=== PATIENT | male | born 1960 | race Caucasian/White ===

== ENCOUNTER 2016-05-19 14:57 | Observation (INO) | payer MEDICARE ==
[2016-05-19] MEDS ORDERED: Sodium Chloride 0.9% 1000 ML 1,000 ML IV STA (15:46)
[2016-05-19] MEDS ORDERED: Sodium Chloride 0.9% 1000 ML 1,000 ML ONE ×2 (15:48→20:10)
--- NOTE | 2016-05-19 15:51 | ERPHSYRPT ---
- History of Present Illness Time Seen by Provider: 05/19/16 15:42 Source: patient Exam Limitations: no limitations Patient Subjective Stated Complaint: HAD LABS DONE TODAY AND THEY CALLED PT AND TOLD HIM HIS BLOOD SUGAR WAS 861 AND HIS SODIUM WAS LOW HE NEEDED TO GO TO THE ER. Triage Nursing Assessment: SKIN WARM, DRY, DUSKY. RESPIRATIONS EVEN AND NON LABORED. Physician History: This is a 55-year-old white male with history of diabetes, liver disease, renal failure, asthma, COPD, sleep apnea, arrhythmia, congestive heart failure, He arrives with complaints that she was told by his family physician to come to the emergency room apparently had a high glucose and a low sodium. Patient states that he has been having vomiting recently he apparently was on a new medication placed by his family doctor but quit taking it because it made him a nauseous. He had labs drawn by his family physician's today and was told to present to the emergency room. Past medical history includes diabetes, liver disease, renal failure, asthma, COPD, sleep apnea, arrhythmia, congestive heart failure, coronary artery disease , high blood pressure, myocardial infarction, autoimmune hepatitis, hernia, arthritis, fractures, anxiety, depression. Past surgical history includes CABG, cardiac catheter, pacer, hernia, heart ablation. Timing/Duration: today Severity: mild Modifying Factors: Improves With: other (told by his family physician he had elevated glucose of low sodium) Associated Symptoms: nausea, vomiting, abdominal pain, No shortness of breath, No heartburn, No diaphoresis, No cough, No chills, No chest pain, No fever, No loss of appetite, No malaise, No rash, No syncope, No seizure, No weakness Allergies/Adverse Reactions: cephalexin [Cephalexin] Allergy (Mild, Verified 12/11/15 15:06) Home Medications: Albuterol Sulfate [Proventil Hfa] 6.7 gm IH .UNKNOWN PRN 05/24/14 [History] Amlodipine Besylate 10 mg [Norvasc 10 MG] 10 mg PO DAILY 05/24/14 [History] Budesonide/Formoterol Fumarate [Symbicort 160-4.5 Mcg Inhaler] 2 puff IH BID [History] Cholecalciferol (Vitamin D3) [Vitamin D3] 50,000 unit PO UD 05/24/14 [History] Dabigatran Etexilate Mesylate [Pradaxa] 75 mg PO BID 05/24/14 [History] Epoetin John 35238 Units/ml [Procrit 82190 UNITS/ML] 0 units SQ WEEKLY [History] Hydrocodone/Acetaminophen [Vicodin Es 7.5-300 mg Tablet] 1 each PO Q6HPRN [History] Insulin Detemir [Levemir] 60 unit SQ BID 05/24/14 [History] Labetalol HCl [Trandate] 200 mg PO BID 05/24/14 [History] Levothyroxine Sodium 88 Mcg [Synthroid 88 Mcg] 88 mcg PO DAILY 05/24/14 [ History] Mycophenolate Mofetil [Cellcept] 500 mg PO BID 05/24/14 [History] Nitroglycerin 0.4 mg Tablet [Nitrostat 0.4 MG Tablet] 0.4 mg SL Q5MIN PRN MR X 3 05/24/14 [History] Ondansetron [Zofran Odt] 4 mg PO DAILY PRN 05/24/14 [History] Sildenafil Citrate [Viagra] 50 mg PO DAILY PRN 05/24/14 [History] Ursodiol 300 mg [Actigall 300MG] 900 mg PO BID 05/24/14 [History] Hydralazine HCl 50 mg PO TID 04/17/15 [History] Losartan Potassium [Cozaar] 25 mg PO DAILY 04/17/15 [History] Magnesium Oxide [Magnesium] 800 mg PO DAILY 04/17/15 [History] Metolazone 5 mg PO UD 04/17/15 [History] Tamsulosin HCl 0.4 mg [Flomax 0.4 MG] 0.4 mg PO DAILY 04/17/15 [History] Torsemide 20 mg PO BID 04/17/15 [History] Calcitriol 0.5 mcg PO UD 12/11/15 [History] Ranolazine 500 MG [Ranexa 500 MG] 500 mg PO BID 12/11/15 [History] Insulin Aspart [Novolog Flexpen] 80 unit SQ BID 05/19/16 [History] Hx Tetanus, Diphtheria Vaccination/Date Given: Yes Hx Influenza Vaccination/Date Given: Yes (2015) Hx Pneumococcal Vaccination/Date Given: Yes (2014) Immunizations Up to Date: Yes - Review of Systems Constitutional: No Fever, No Chills, No Fatigue, No Lethargy, No Malaise, No Night Sweats, No Weakness, No Weight Loss Eyes: No Discharge, No Eye Pain, No Eye Redness, No Photophobia, No Tearing, No Vision Changes, No Double Vision, No Foreign Body Sensation Ears, Nose, & Throat: No Ear Pain, No Ear Discharge, No Hearing Changes, No Tinnitus, No Nose Pain, No Nose Congestion, No Nose Discharge, No Sinus Drainage , No Epistaxis, No Mouth Pain, No Mouth Swelling, No Loose Teeth, No Throat Pain , No Throat Swelling, No Hoarse, No Painful Swallowing, No Snoring, No Stridor Respiratory: No Cough, No Dyspnea Cardiac: No Chest Pain, No Edema, No Syncope Abdominal/Gastrointestinal: Abdominal Pain (pain of bilateral lateral abdomen off-and-on for several weeks), Nausea, Vomiting, No Diarrhea, No Constipation, No Hematemesis, No Hematochezia, No Melena, No Dysphagia, No Appetite Changes Genitourinary Symptoms: No Dysuria Musculoskeletal: No Back Pain, No Neck Pain Skin: No Rash Neurological: No Dizziness, No Focal Weakness, No Sensory Changes Psychological: No Symptoms Endocrine: No Symptoms All Other Systems: Reviewed and Negative - Past Medical History Pertinent Past Medical History: Yes Neurological History: No Pertinent History ENT History: No Pertinent History Cardiac History: Arrhythmia, Congestive Heart Failure, Coronary Artery Disease, Hypertension, Myocardial Infarction ([place]), Other Respiratory History: Asthma, COPD, Sleep Apnea Endocrine Medical History: Diabetes Type I, Liver Disease Musculoskeletal History: Arthritis, Fractures, Other GI Medical History: Hepatitis, Hernia History: Renal Disease Psycho-Social History: Anxiety Male Reproductive Disorders: No Pertinent History - Past Surgical History Past Surgical History: Yes Neuro Surgical History: No Pertinent History Cardiac: CABG, Cardiac Catheterization, Pacemaker Respiratory: No Pertinent History Gastrointestinal: Hernia Repair Genitourinary: No Pertinent History Musculoskeletal: No Pertinent History Male Surgical History: No Pertinent History Other Surgical History: open heart for afib - Social History Smoking Status: Current every day smoker How long have you smoked: 35 Exposure to second hand smoke: No Drug Use: none Patient Lives Alone: No - Nursing Vital Signs Nursing Vital Signs: Initial Vital Signs Temperature 98.1 F Temperature Source Oral Pulse Rate 72 Respiratory Rate 18 Blood Pressure [] 137/74 Pain Intensity 0 - Physical Exam General Appearance: no apparent distress, alert Eye Exam: PERRL/EOMI, eyes nml inspection Ears, Nose, Throat Exam: normal ENT inspection, TMs normal, pharynx normal, moist mucous membranes Neck Exam: normal inspection, non-tender, supple, full range of motion Respiratory Exam: normal breath sounds, lungs clear, No respiratory distress Cardiovascular Exam: regular rate/rhythm, normal heart sounds, normal peripheral pulses Gastrointestinal/Abdomen Exam: soft, normal bowel sounds, No tenderness, No mass Back Exam: normal inspection, normal range of motion, No CVA tenderness, No vertebral tenderness Extremity Exam: normal inspection, normal range of motion, pelvis stable Neurologic Exam: alert, oriented x 3, cooperative, normal mood/affect, nml cerebellar function, nml station & gait, sensation nml, No motor deficits Lymphatic Exam: No adenopathy SpO2 Interpretation: normal (97%) SpO2: 97 Oxygen Delivery: Room Air - Course Nursing assessment & vital signs reviewed: Yes EKG Interpreted by Me: RATE (65 bpm), Other (paced rhythm, 65 bpm,large amount of artifact from pacerno acute changes noted) - Radiology Exams Chest X-ray Interpretation: Discussed w/ radiologist (chest x-ray more blunting of the right costophrenic angle cannot tell whether due to the increased pleural scarring or minimal effusion on the right, remainder of the right upper lung field and left lung appears clear no new airspace infiltrate seen. 3. Evidence of prior CABG and left-sided cardiac pacemaker no heart failure is seen ) Ordered Tests: Active Orders 24 hr Category Date Time Status Accucheck STAT Care 05/19/16 15:46 Active EKG-ER Only STAT Care 05/19/16 16:03 Active IV Insertion STAT Care 05/19/16 15:46 Active IV Insertion-2nd Peripheral STAT Care 05/19/16 15:46 Active CHEST 1 VIEW (PORTABLE) Stat Exams 05/19/16 15:51 Completed CBC W DIFF Stat Lab 05/19/16 15:54 Completed CMP Stat Lab 05/19/16 15:54 Completed Glucose,Critical Care Stat Lab 05/19/16 15:58 Completed Lactic Acid Urgent Lab 05/19/16 15:46 Completed Manual Differential NC Stat Lab 05/19/16 15:54 Completed VENOUS BLOOD GAS Urgent Lab 05/19/16 15:46 Completed Medication Summary Generic Name Dose Route Start Last Admin Trade Name Mayte PRN Reason Stop Dose Admin Insulin Human Regular 100 101 mls @ 10.1 mls/hr 05/19/16 17:15 units/ Sodium Chloride IV 06/18/16 17:14 .Q10H AGUSTINA 10 UNITS/HR Discontinued Medications Generic Name Dose Route Start Last Admin Trade Name Mayte PRN Reason Stop Dose Admin Sodium Chloride 1,000 mls @ 999 mls/hr 05/19/16 15:46 05/19/16 15:51 Sodium Chloride 0.9% 1000 Ml IV 05/19/16 16:46 999 mls/hr .Q1H1M STA Administration Sodium Chloride Confirm 05/19/16 15:48 Sodium Chloride 0.9% 1000 Ml Administered 05/19/16 15:49 Dose 1,000 mls @ ud .ROUTE .STK-MED ONE Lab/Rad Data: Laboratory Result Diagrams 05/19/16 15:54 05/19/16 15:54 Laboratory Results 05/19/16 05/19/16 05/19/16 Range/Units 15:58 15:54 15:54 WBC 9.1 (4.0-10.5) K/mm3 RBC 4.06 L (4.1-5.6) M/mm3 Hgb 10.9 L (12.5-18.0) gm/dl Hct 31.1 L (42-50) % MCV 76.6 L (78-100) fl MCH 26.8 (26-32) pg MCHC 35.0 (32-36) g/dl RDW 15.5 H (11.5-14.0) % Plt Count 204 (150-450) K/mm3 MPV 11.0 H (6-9.5) fl Segmented Neutrophils 85 H (36.-66.) % Lymphocytes (Manual) 10 L (24-44) % Monocytes (Manual) 5 (0.0-12.0) % Differential Comment NORMAL Platelet Estimate NORMAL (NORMAL) VBG pH (7.32-7.42) VBG pCO2 at Pat Temp (42-55) mm/Hg VBG pO2 at Pat Temp (25-40) mm/Hg VBG HCO3 (22-28) meq/L VBG O2 Sat (Tae) (95-100) VBG Base Excess (-2.0-2.0) VBG Hemoglobin VBG Carboxyhemoglobin (0.0-6.9) % T HGB POC Potassium (3.5-5.1) Sodium 123 L (136-145) mEq/L Potassium 3.7 (3.5-5.1) mEq/L Chloride 86 L (98-107) mEq/L Carbon Dioxide 23.5 (21-32) mEq/L Anion Gap 17.4 H (5-15) MEQ/L BUN 62 H (9-20) mg/dL Creatinine 3.61 H (0.55-1.30) mg/dl Estimated GFR 19 ML/MIN Glucose > 750 H* 855 H* (70-110) MG/DL Lactic Acid (0.4-2.0) Calcium 8.5 (8.5-10.1) mg/dL Total Bilirubin 0.4 (0.2-1.0) mg/dL AST 13 L (15-37) U/L ALT 21 (12-78) U/L Alkaline Phosphatase 172 H (46-116) U/L Serum Total Protein 7.3 (6.4-8.2) gm/dL Albumin 3.2 L (3.4-5.0) g/dL 05/19/16 Range/Units 15:46 WBC (4.0-10.5) K/mm3 RBC (4.1-5.6) M/mm3 Hgb (12.5-18.0) gm/dl Hct (42-50) % MCV (78-100) fl MCH (26-32) pg MCHC (32-36) g/dl RDW (11.5-14.0) % Plt Count (150-450) K/mm3 MPV (6-9.5) fl Segmented Neutrophils (36.-66.) % Lymphocytes (Manual) (24-44) % Monocytes (Manual) (0.0-12.0) % Differential Comment Platelet Estimate (NORMAL) VBG pH 7.35 (7.32-7.42) VBG pCO2 at Pat Temp 47 (42-55) mm/Hg VBG pO2 at Pat Temp 49 H (25-40) mm/Hg VBG HCO3 25.9 (22-28) meq/L VBG O2 Sat (Tae) 87.4 L (95-100) VBG Base Excess -0.1 (-2.0-2.0) VBG Hemoglobin 10.9 VBG Carboxyhemoglobin 6.3 (0.0-6.9) % T HGB POC Potassium 3.9 (3.5-5.1) Sodium (136-145) mEq/L Potassium (3.5-5.1) mEq/L Chloride (98-107) mEq/L Carbon Dioxide (21-32) mEq/L Anion Gap (5-15) MEQ/L BUN (9-20) mg/dL Creatinine (0.55-1.30) mg/dl Estimated GFR ML/MIN Glucose (70-110) MG/DL Lactic Acid 2.3 H (0.4-2.0) Calcium (8.5-10.1) mg/dL Total Bilirubin (0.2-1.0) mg/dL AST (15-37) U/L ALT (12-78) U/L Alkaline Phosphatase (46-116) U/L Serum Total Protein (6.4-8.2) gm/dL Albumin (3.4-5.0) g/dL - Progress Progress: improved Progress Note: 05/19/16 17:22 This is a 55-year-old white male who arrives with complaint of increased glucose and decreased potassium in his family physician's office morning. Patient states he has been on a medication for his diabetes but he quit taking it because it was causing him to have stomach problems. Patient states he has had a chronic ongoing pain in his stomach off and on for about 2 weeks and he's had occasional vomiting no diarrhea no fevers no chest pain no shortness of breath. Patient does have a history of diabetes, liver failure, renal failure, asthma, COPD, sleep apnea, arrhythmia, congestive heart failure, high blood pressure, coronary artery disease, and myocardial infarction as well as autoimmune hepatitis. Patient's labs show a glucose of 855 BUN is 62 creatinine 3.61 sodium 123 potassium 3.7 chloride 86. Carbon dioxide is 23 patient appears to be fairly stable chest x-ray shows pleural and parenchymal scarring in the right lung base which appears to be increased and not clear whether this is secondary to a minimal effusion the remainder of the right upper lung field and left lung appear to be clear patient's EKG paced rhythm 65 bpm no acute changes noted. Case is discussed with Dr. Nogueira patient was initially started on normal saline at [address] mil[address] place patient on normal saline with 40 mEq of potassium chloride at 200 mL per hour,. Patient has been started on an insulin drip. Will place patient in the ICU. And continue insulin drip and IV fluids - Departure Time of Disposition: 17:26 Departure Disposition: Observation Clinical Impression: Hyperglycemia Condition: Fair Critical Care Time: No
[2016-05-19 15:56] LABS: Lactic Acid 2.3 (0.4-2.0); VBG BASE EXCESS -0.1 (-2.0-2.0); VBG CARBOXYHEMOGLOBIN 6.3 % T HGB (0.0-6.9); VBG HCO3- 25.9 meq/L (22-28); VBG HEMOGLOBIN 10.9; VBG O2 SATURATION 87.4 (95-100); VBG POTASSIUM 3.9 (3.5-5.1); VBG pH 7.35 (7.32-7.42)
[2016-05-19 15:59] LABS: Mean Cell Volume 76.6 fl (78-100); Mean Corpuscular Hemoglobin 26.8 pg (26-32); Platelet Count 204 K/mm3 (150-450); Red Blood Count 4.06 M/mm3 (4.1-5.6); Red Cell Distribution Width 15.5 % (11.5-14.0); White Blood Count 9.1 K/mm3 (4.0-10.5)
[2016-05-19 16:40] LABS: ALBUMIN 3.2 g/dL (3.4-5.0); ANION GAP 17.4 MEQ/L (5-15); BILIRUBIN,TOTAL 0.4 mg/dL (0.2-1.0); Carbon Dioxide 23.5 mEq/L (21-32); Potassium 3.7 mEq/L (3.5-5.1); Total Protein 7.3 gm/dL (6.4-8.2)
[2016-05-19 16:47] LABS: Total Cells Counted 100
[2016-05-19 16:48] LABS: Platelet Estimate NORMAL (NORMAL)
--- NOTE | 2016-05-19 16:56 | XRAY ---
Exam: AP portable chest film from 1600 hours on 05/19/2016. Comparison: Two-view chest from 12/11/2015. Indication: Hyperglycemia Findings: The transverse heart size appears within normal limits for this AP portable technique. There is evidence of prior sternotomy, apparently due to CABG. A left atrial appendage clip is seen. No central pulmonary vascular congestion is seen. A left-sided cardiac pacemaker with dual leads is again seen. I note mild to moderate elevation of the lateral aspect of the right hemidiaphragm with chronic pleural-parenchymal opacity within the lateral right lung base believed to represent scarring. There is some blunting of the right costophrenic angle which probably reflects pleural scarring, although minimal superimposed effusion is not excluded with certainty. The right upper lung field and left lung field remain clear. Old healed right-sided rib fractures are again seen. I believe there is also an old healed left sixth rib fracture deformity posterior laterally. Impression: 1. There is pleural-parenchymal scarring at the lateral right lung base with some focal elevation of the lateral aspect of the right hemidiaphragm. This appears similar to 12/11/2015, although there may be slightly more blunting of the right costophrenic angle. I cannot tell whether this is due to increased pleural scarring or a minimal effusion on the right. 2. The remainder of the right upper lung field and left lung field appears clear. No new air space infiltrates are seen. 3. There is evidence of prior CABG and left-sided cardiac pacemaker. No heart failure is seen.
[2016-05-19] MEDS ORDERED: NOVOLIN R INSULIN (FOR DRIPS)** 100 UNITS in Sodium Chloride 0.9% 100 ML IVPB 100 ML IV SCH (17:15)
[2016-05-19] MEDS ORDERED: NovoLIN R ONE (17:22)
[2016-05-19] MEDS ORDERED: Sodium Chloride 0.9% 100 ML IVPB 100 ML IV ONE (17:22)
[2016-05-19] MEDS ORDERED: NOVOLIN R INSULIN (FOR DRIPS)** 100 UNITS in Sodium Chloride 0.9% 100 ML IVPB 100 ML IV PRN (20:56)
[2016-05-19] MEDS: SODIUM CHLORIDE 0.9% W/ 40 mEq KCL 1000ML 1,000 ML IV SCH (21:22)
[2016-05-19] MEDS ORDERED: PROVENTIL 2.5 MG/3 ML NEB IH PRN (21:25)
[2016-05-20 00:32] LABS: ANION GAP 12.3 MEQ/L (5-15); Carbon Dioxide 26.6 mEq/L (21-32); Potassium 3.5 mEq/L (3.5-5.1)
[2016-05-20 00:40] VITALS: O2SAT 96
[2016-05-20] MEDS ORDERED: NORCO 5/325 MG PO PRN (01:11)
[2016-05-20] MEDS ORDERED: Lantus Insulin SQ SCH ×3 (01:30→10:45)
[2016-05-20] MEDS: SODIUM CHLORIDE 0.9% W/ 40 mEq KCL 1000ML 1,000 ML IV SCH ×4 (02:39→08:10)
[2016-05-20 03:59] VITALS: PULSE 92
[2016-05-20 06:09] LABS: ANION GAP 13.6 MEQ/L (5-15); Carbon Dioxide 25.8 mEq/L (21-32); Potassium 3.4 mEq/L (3.5-5.1)
[2016-05-20 08:40] VITALS: BP 150/76
[2016-05-20] MEDS ORDERED: ZOFRAN ODT 4 MG PO PRN (09:13)
[2016-05-20] MEDS ORDERED: Nitrostat 0.4 MG Tablet SL SCH (09:15)
[2016-05-20] MEDS ORDERED: NON-FORMULARY ITEM (Metolazone [Metolazone] 5 MG) PO SCH (09:15)
[2016-05-20] MEDS ORDERED: NON-FORMULARY ITEM (Calcitriol [Calcitriol] 0.5 MCG) PO SCH (09:15)
[2016-05-20] MEDS ORDERED: VITAMIN D PO SCH (09:15)
[2016-05-20] MEDS ORDERED: NON-FORMULARY ITEM (Mycophenolate Mofetil [Cellcept] 500 MG) PO SCH (10:00)
[2016-05-20] MEDS ORDERED: Lasix 40 MG PO SCH (10:00)
[2016-05-20] MEDS ORDERED: Actigall 300MG PO SCH ×3 (10:00→22:00)
[2016-05-20] MEDS ORDERED: SYNTHROID 88 MCG PO SCH (10:00)
[2016-05-20] MEDS ORDERED: hydroDIURIL 25 MG PO SCH (10:00)
[2016-05-20] MEDS ORDERED: Apresoline 25 MG TABLET PO SCH (10:00)
[2016-05-20] MEDS ORDERED: LOSARTAN POTASSIUM PO SCH (10:00)
[2016-05-20] MEDS ORDERED: Cozaar 50 MG PO SCH (10:00)
[2016-05-20] MEDS ORDERED: MAG-OX 400 PO SCH (10:00)
[2016-05-20] MEDS ORDERED: Trandate 100 MG PO SCH (10:00)
[2016-05-20] MEDS ORDERED: LABETALOL HCL 300 MG PO SCH (10:00)
[2016-05-20] MEDS ORDERED: DABIGATRAN ETEXILATE MESYLATE 75 MG PO SCH (10:00)
[2016-05-20] MEDS ORDERED: Flomax 0.4 MG PO SCH (10:00)
[2016-05-20] MEDS ORDERED: Ranexa 500 MG PO SCH (10:00)
[2016-05-20] MEDS ORDERED: Zaroxolyn 2.5 MG PO SCH (10:00)
[2016-05-20] MEDS ORDERED: NORVASC 5 MG PO SCH (10:00)
[2016-05-20] MEDS ORDERED: NON-FORMULARY ITEM (Hydralazine Hcl [Hydralazine Hcl] 50 MG) PO SCH (10:00)
[2016-05-20] MEDS ORDERED: PRADAXA 75 MG PO SCH (10:00)
[2016-05-20] MEDS ORDERED: NON-FORMULARY ITEM (Amlodipine Besylate 10 Mg [Norvasc 10 Mg] 10 MG) PO SCH (10:00)
[2016-05-20] MEDS ORDERED: NON-FORMULARY ITEM (Budesonide/Formoterol Fumarate [Symbicort 160-4.5 Mcg Inhaler] 2 PUFF) IH SCH (10:00)
[2016-05-20] MEDS ORDERED: NovoLOG Insulin SQ SCH (11:30)
[2016-05-20] MEDS ORDERED: INSULIN ASPART 40 UNIT SQ SCH (11:30)
--- NOTE | 2016-05-20 12:50 | PCM.SSS ---
History of Present Illness - Chief Complaint Chief Complaint: hyperglycemia History of Present Illness: This is a 55-year-old white male with history of diabetes, liver disease, renal failure, asthma, COPD, sleep apnea, arrhythmia, congestive heart failure, He arrives with complaints that she was told by his family physician to come to the emergency room apparently had a high glucose and a low sodium. Patient states that he has been having vomiting recently he apparently was on a new medication placed by his family doctor but quit taking it because it made him a nauseous. He had labs drawn by his family physician's today and was told to present to the emergency room. Past medical history includes diabetes, liver disease, renal failure, asthma, COPD, sleep apnea, arrhythmia, congestive heart failure, coronary artery disease , high blood pressure, myocardial infarction, autoimmune hepatitis, hernia, arthritis, fractures, anxiety, depression. Past surgical history includes CABG, cardiac catheter, pacer, hernia, heart ablation - Review of Systems Constitutional: No Fever, No Chills Eyes: No Symptoms Ears, Nose, & Throat: No Symptoms Respiratory: No Cough, No Short Of Breath Cardiac: No Chest Pain, No Edema, No Syncope Abdominal/Gastrointestinal: No Abdominal Pain, No Nausea, No Vomiting, No Diarrhea Genitourinary Symptoms: No Dysuria Musculoskeletal: No Back Pain, No Neck Pain Skin: No Rash Neurological: No Dizziness, No Focal Weakness, No Sensory Changes Psychological: No Symptoms Endocrine: No Symptoms Hematologic/Lymphatic: No Symptoms Immunological/Allergic: No Symptoms Medications & Allergies Home Medications: Home Medication List Albuterol Sulfate [Proventil Hfa] 6.7 gm IH .UNKNOWN PRN 05/24/14 [History Confirmed 05/19/16] Amlodipine Besylate 10 mg [Norvasc 10 MG] 10 mg PO DAILY 05/24/14 [History Confirmed 05/19/16] Budesonide/Formoterol Fumarate [Symbicort 160-4.5 Mcg Inhaler] 2 puff IH BID [History Confirmed 05/19/16] Cholecalciferol (Vitamin D3) [Vitamin D3] 50,000 unit PO UD 05/24/14 [History Confirmed 05/19/16] Dabigatran Etexilate Mesylate [Pradaxa] 75 mg PO BID 05/24/14 [History Confirmed 05/19/16] Insulin Detemir [Levemir] 80 unit SQ BID 05/24/14 [History Confirmed 05/19/16] Labetalol HCl [Trandate] 200 mg PO BID 05/24/14 [History Confirmed 05/20/16] Levothyroxine Sodium 88 Mcg [Synthroid 88 Mcg] 88 mcg PO DAILY 05/24/14 [ History Confirmed 05/19/16] Mycophenolate Mofetil [Cellcept] 500 mg PO BID 05/24/14 [History Confirmed 05/19] Nitroglycerin 0.4 mg Tablet [Nitrostat 0.4 MG Tablet] 0.4 mg SL Q5MIN PRN MR X 3 05/24/14 [History Confirmed 05/19/16] Ondansetron [Zofran Odt] 4 mg PO DAILY PRN 05/24/14 [History Confirmed 05/19/16] Sildenafil Citrate [Viagra] 50 mg PO DAILY PRN 05/24/14 [History Confirmed 05/19] Ursodiol 300 mg [Actigall 300MG] 900 mg PO BID 05/24/14 [History Confirmed 05/19/16] Hydralazine HCl 50 mg PO TID 04/17/15 [History Confirmed 05/19/16] Magnesium Oxide [Magnesium] 500 mg PO DAILY 04/17/15 [History Confirmed 05/19/16 ] Metolazone 5 mg PO UD 04/17/15 [History Confirmed 05/19/16] Tamsulosin HCl 0.4 mg [Flomax 0.4 MG] 0.4 mg PO DAILY 04/17/15 [History Confirmed 05/19/16] Calcitriol 0.5 mcg PO UD 12/11/15 [History Confirmed 05/19/16] Ranolazine 500 MG [Ranexa 500 MG] 500 mg PO BID 12/11/15 [History Confirmed 05/20/16] Atorvastatin Calcium [Lipitor 20MG Tablet] 20 mg PO QHS 05/19/16 [History Confirmed 05/19/16] Hydrocodone Bit/Acetaminophen [Hydrocodon-Acetaminophen 5-325] 1 each PO Q6HPRN PRN 05/19/16 [History Confirmed 05/19/16] Insulin Aspart [Novolog Flexpen] 40 unit SQ TIDAC 05/19/16 [History Confirmed ] Losartan Potassium [Hyzaar 100-25] 1 tab PO DAILY 05/19/16 [History Confirmed ] Albuterol 2.5 mg/3 ml Neb [Proventil 2.5 mg/3 ml Neb] 2.5 mg IH Q4H PRN PRN #0 neb 05/20/16 [Rx] Hydrochlorothiazide 25 mg [hydroDIURIL 25 MG] 25 mg PO DAILY #0 tablet [Rx] Torsemide 20 mg PO BID 05/20/16 [History Confirmed 05/20/16] Ursodiol 300 mg [Actigall 300MG] 600 mg PO QPM #0 cap 05/20/16 [Rx] Allergies/Adverse Reactions: Allergies Allergy/AdvReac Type Severity Reaction Status Date / Time cephalexin [Cephalexin] Allergy Mild Verified 12/11/15 15:06 - Past Medical History Past Medical History: Yes Neurological History: No Pertinent History ENT History: No Pertinent History Cardiac History: Arrhythmia, Congestive Heart Failure, Coronary Artery Disease, Hypertension, Myocardial Infarction ([place]), Other Respiratory History: Asthma, COPD, Sleep Apnea Endocrine Medical History: Diabetes Type I, Liver Disease Musculoskelatal History: Arthritis, Fractures, Other GI Medical History: Hepatitis, Hernia History: Renal Disease Pyscho-Social History: Anxiety Male Reproductive Disorders: No Pertinent History - Past Surgical History Past Surgical History: Yes Neuro Surgical History: No Pertinent History Cardiac History: CABG, Cardiac Catheterization, Pacemaker Respiratory Surgery: No Pertinent History GI Surgical History: Hernia Repair Genitourinary Surgical Hx: No Pertinent History Musculskeletal Surgical Hx: No Pertinent History Male Surgical History: No Pertinent History Other Surgical History: open heart for afib - Social History Smoking Status: Current every day smoker How long have you smoked: 35 Exposure to second hand smoke: No Alcohol: None Drug Use: none - Physical Exam Vital Signs: Vital Signs - 24 hr Temp Pulse Resp BP Pulse Ox 05/20/16 08:16 92 H 16 96 05/20/16 08:00 98.4 F 73 11 L 150/76 99 05/20/16 03:58 97.8 F 92 H 15 146/79 96 05/20/16 03:57 108 H 05/20/16 00:01 108 H 05/20/16 00:00 108 H 22 138/47 96 05/19/16 21:21 100 H 20 98 05/19/16 20:05 101 H 16 150/92 96 05/19/16 18:01 64 18 147/63 98 05/19/16 17:30 67 18 138/60 98 05/19/16 17:26 97 05/19/16 15:48 67 16 141/70 97 05/19/16 14:58 98.1 F 72 18 137/74 97 Oxygen-Last 24 hours O2 Percentage 2 Liters = 28% General Appearance: no apparent distress, alert Neurologic Exam: alert, oriented x 3, cooperative, normal mood/affect, nml cerebellar function, nml station & gait, sensation nml, No motor deficits Eye Exam: PERRL/EOMI, eyes nml inspection Ears, Nose, Throat Exam: normal ENT inspection, TMs normal, pharynx normal, moist mucous membranes Neck Exam: normal inspection, non-tender, supple, full range of motion Respiratory Exam: normal breath sounds, lungs clear, No respiratory distress Cardiovascular Exam: regular rate/rhythm, normal heart sounds, normal peripheral pulses Gastrointestinal/Abdomen Exam: soft, normal bowel sounds, No tenderness, No mass Back Exam: normal inspection, normal range of motion, No CVA tenderness, No vertebral tenderness Extremity Exam: normal inspection, normal range of motion, pelvis stable Skin Exam: normal color, warm, dry, No rash Lymphatic Exam: No adenopathy Results - Labs Lab/Micro Results: Accuchecks Date 05/20/1605/20/1605/20/1605/20/1605/20/1605/19/1605/19/1605/19/1605/19/1605/19/16 Time 10:42 Time 05:37 Time 03:56 Time 02:30 Time 01:00 Time 22:10 Time 22:10 Time 22:10 Time 21:05 Time 20:00 Accucheck Value: 164 Accucheck Value: 204 Accucheck Value: 181 Accucheck Value: 181 Accucheck Value: 122 Accucheck Value: 238 Accucheck Value: 461 Lab Results-Last 24 Hours 05/20/16 05/20/16 Range/Units 00:08 05:37 Sodium 135 L 139 (136-145) mEq/L Potassium 3.5 3.4 L (3.5-5.1) mEq/L Chloride 100 103 (98-107) mEq/L Carbon Dioxide 26.6 25.8 (21-32) mEq/L Anion Gap 12.3 13.6 (5-15) MEQ/L BUN 58 H 52 H (9-20) mg/dL Creatinine 2.99 H 2.69 H (0.55-1.30) mg/dl Estimated GFR 23 26 ML/MIN Glucose 173 H 152 H (70-110) MG/DL Calcium 8.6 8.6 (8.5-10.1) mg/dL Accuchecks Date 05/20/16 Date 05/20/16 Date 05/20/16 Date 05/20/16 Date 05/20/16 Date 05/19/16 Date 05/19/16 Date 05/19/16 Date 05/19/16 Date 05/19/16 Time 10:42 Time 05:37 Time 03:56 Time 02:30 Time 01:00 Time 22:10 Time 22:10 Time 22:10 Time 21:05 Time 20:00 Accucheck Value: 164 Accucheck Value: 204 Accucheck Value: 181 Accucheck Value: 181 Accucheck Value: 122 Accucheck Value: 238 Accucheck Value: 461 - Other Procedures and Tests Respiratory Therapy 05/19/16 20:20 Oxygen NASAL CANNULA 2 lpm 05/19/16 21:27 neb [Respiratory Nebulizer] PRN Assessment/Plan (1) Hyperglycemia due to type 2 diabetes mellitus Status: Acute Qualifiers: Diabetes mellitus usp insulin use: with intermediate designer use Qualified Code( s): E11.65 - Type 2 diabetes mellitus with hyperglycemia; 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 Code(s): E11.65 - TYPE 2 DIABETES MELLITUS WITH HYPERGLYCEMIA (2) Hyperglycemia due to type 2 diabetes mellitus Status: Acute Qualifiers: Diabetes mellitus intermediate designer insulin use: with intermediate designer use Qualified Code( s): E11.65 - Type 2 diabetes mellitus with hyperglycemia; Z79.4 - half-way ( current) use of insulin Code(s): E11.65 - TYPE 2 DIABETES MELLITUS WITH HYPERGLYCEMIA Hospital Summary - Hospital Course Hospital Course: Chief Complaint Diagnosis hyperglycemia Allergies Allergy/AdvReac Type Severity Reaction Status Date / Time cephalexin [Cephalexin] Allergy Mild Verified 12/11/15 15:06 Vital Signs (Last 24 hours) Temp Pulse Resp BP Pulse Ox 05/20/16 08:16 92 H 16 96 05/20/16 08:00 98.4 F 73 11 L 150/76 99 05/20/16 03:58 97.8 F 92 H 15 146/79 96 05/20/16 03:57 108 H 05/20/16 00:01 108 H 05/20/16 00:00 108 H 22 138/47 96 05/19/16 21:21 100 H 20 98 05/19/16 20:05 101 H 16 150/92 96 05/19/16 18:01 64 18 147/63 98 05/19/16 17:30 67 18 138/60 98 05/19/16 17:26 97 05/19/16 15:48 67 16 141/70 97 05/19/16 14:58 98.1 F 72 18 137/74 97 Home Medications Medication Instructions Recorded Confirmed Last Taken Type Atorvastatin Calcium [Lipitor 20MG 20 mg PO QHS 05/19/16 05/19/16 05/18/16 History Tablet] Hydrocodone Bit/Acetaminophen 1 each PO Q6HPRN PRN 05/19/16 05/19/16 Unknown History [Hydrocodon-Acetaminophen 5-325] Insulin Aspart [Novolog Flexpen] 40 unit SQ TIDAC 05/19/16 05/19/16 Unknown History Losartan Potassium [Hyzaar 100-25] 1 tab PO DAILY 05/19/16 05/19/16 05/19/16 History Albuterol 2.5 mg/3 ml Neb 2.5 mg IH Q4H PRN PRN #0 neb 05/20/16 Unknown Rx [Proventil 2.5 mg/3 ml Neb] Hydrochlorothiazide 25 mg 25 mg PO DAILY #0 tablet 05/20/16 Unknown Rx [hydroDIURIL 25 MG] Torsemide 20 mg PO BID 05/20/16 05/20/16 Unknown History Ursodiol 300 mg [Actigall 600 mg PO QPM #0 cap 05/20/16 Unknown Rx 300MG] Current Medications Discontinued Medications Generic Name Dose Route Start Last Admin Trade Name Freq PRN Reason Stop Dose Admin Acetaminophen/Hydrocodone Bitart 1 tab 05/20/16 01:11 05/20/16 01:26 [place]on 5/325 Mg PO 05/25/16 01:10 1 tab Q4H PRN PRN Administration PAIN Albuterol Sulfate 2.5 mg 05/19/16 21:25 Proventil 2.5 Mg/3 Ml Neb IH 06/18/16 21:24 Q4H PRN PRN SHORTNESS OF BREATH/WHEEZING Amlodipine Besylate 10 mg 05/20/16 10:00 05/20/16 10:20 Norvasc 5 Mg PO 06/19/16 09:59 10 mg DAILY AGUSTINA Administration Cholecalciferol 50,000 unit 05/20/16 09:15 Vitamin D PO 06/19/16 09:14 UD AGUSTINA Dabigatran 75 mg 05/20/16 10:00 05/20/16 10:20 Pradaxa 75 Mg PO 06/19/16 09:59 75 mg BID AGUSTINA Administration Furosemide 40 mg 05/20/16 10:00 05/20/16 10:27 Lasix 40 Mg PO 06/19/16 09:59 Not Given BID DIURETIC AGUSTINA Hydralazine HCl 50 mg 05/20/16 10:00 05/20/16 10:18 Apresoline 25 Mg Tablet PO 06/19/16 09:59 50 mg TID AGUSTINA Administration Hydrochlorothiazide 25 mg 05/20/16 10:00 05/20/16 10:18 Hydrodiuril 25 Mg PO 06/19/16 09:59 25 mg DAILY AGUSTINA Administration Sodium Chloride 1,000 mls @ 999 mls/hr 05/19/16 15:46 05/19/16 15:51 Sodium Chloride 0.9% 1000 Ml IV 05/19/16 16:46 999 mls/hr .Q1H1M STA Administration Sodium Chloride Confirm 05/19/16 15:48 Sodium Chloride 0.9% 1000 Ml Administered 05/19/16 15:49 Dose 1,000 mls @ ud .ROUTE .STK-MED ONE Insulin Human Regular 100 101 mls @ 10.1 mls/hr 05/19/16 17:15 05/19/16 17:44 units/ Sodium Chloride IV 06/18/16 17:14 10.1 mls/hr .Q10H AGUSTINA Administration 10 UNITS/HR Sodium Chloride Confirm 05/19/16 17:22 Sodium Chloride 0.9% 100 Ml Ivpb Administered 05/19/16 17:23 Dose 100 mls @ ud IV .STK-MED ONE Sodium Chloride Confirm 05/19/16 20:10 Sodium Chloride 0.9% 1000 Ml Administered 05/19/16 20:11 Dose 1,000 mls @ ud .ROUTE .STK-MED ONE Potassium Chloride/Sodium Chloride 1,000 mls @ 200 mls/hr 05/19/16 21:00 08:10 Sodium Chloride 0.9% W/ 40 Meq Kcl 1000ml IV 06/18/16 20:59 200 mls/hr .Q5H AGUSTINA Administration Insulin Human Regular 100 101 mls @ 10.1 mls/hr 05/19/16 20:56 units/ Sodium Chloride IV 06/18/16 20:55 .Q10H PRN HYPERGLYCEMIA Protocol 10 UNITS/HR Insulin Aspart 40 unit 05/20/16 11:30 05/20/16 12:19 Novolog Insulin SQ 06/19/16 11:29 Not Given TIDAC AGUSTINA Insulin Glargine 80 unit 05/20/16 01:30 05/20/16 01:27 Lantus Insulin SQ 06/19/16 01:29 80 unit HS AGUSTINA Administration Insulin Glargine 80 unit 05/20/16 10:45 05/20/16 10:57 Lantus Insulin SQ 06/19/16 10:44 80 unit BID AGUSTINA Administration Insulin Human Regular Confirm 05/19/16 17:22 Novolin R Administered 05/19/16 17:23 Dose 100 unit .ROUTE .STK-MED ONE Labetalol HCl 300 mg 05/20/16 10:00 05/20/16 10:25 Trandate 100 Mg PO 06/19/16 09:59 200 mg BID AGUSTINA Administration Levothyroxine Sodium 88 mcg 05/20/16 10:00 05/20/16 10:15 Synthroid 88 Mcg PO 06/19/16 09:59 88 mcg DAILY AGUSTINA Administration Losartan Potassium 100 mg 05/20/16 10:00 05/20/16 10:23 Cozaar 50 Mg PO 06/19/16 09:59 100 mg DAILY AGUSTINA Administration Magnesium Oxide 400 mg 05/20/16 10:00 05/20/16 10:18 Mag-Ox 400 PO 06/19/16 09:59 400 mg DAILY AGUSTINA Administration Metolazone 5 mg 05/20/16 10:00 05/20/16 10:24 Zaroxolyn 2.5 Mg PO 06/19/16 09:59 5 mg [id number] AGUSTINA Administration Nitroglycerin 0.4 mg 05/20/16 09:15 Nitrostat 0.4 Mg Tablet SL 06/19/16 09:14 Q5MIN PRN MR X 3 AGUSTINA Non-Formulary Medication 2 puff 05/20/16 10:00 05/20/16 12:19 Budesonide/Formoterol Fumarate [Symbicort 160-4.5 Mcg Inhaler] IH 06/19/16 09:59 Not Given BID AGUSTINA Non-Formulary Medication 0.5 mcg 05/20/16 09:15 Calcitriol [Calcitriol] PO 06/19/16 09:14 UD AGUSTINA Non-Formulary Medication 500 mg 05/20/16 10:00 05/20/16 12:19 Mycophenolate Mofetil [Cellcept] PO 06/19/16 09:59 Not Given BID AGUSTINA Ondansetron HCl 4 mg 05/20/16 09:13 Zofran Odt 4 Mg PO 06/19/16 09:12 DAILY PRN PRN N/V Ranolazine 1,000 mg 05/20/16 10:00 05/20/16 10:21 Ranexa 500 Mg PO 06/19/16 09:59 500 mg DAILY AGUSTINA Administration Simvastatin 20 mg 05/20/16 22:00 Zocor 20mg PO 06/19/16 21:59 HS [facility] Tamsulosin HCl 0.4 mg 05/20/16 10:00 05/20/16 10:27 Flomax 0.4 Mg PO 06/19/16 09:59 Not Given DAILY AGUSTINA Ursodiol 900 mg 05/20/16 10:00 Actigall 300mg PO 06/19/16 09:59 BID AGUSTINA Ursodiol 900 mg 05/20/16 10:00 05/20/16 10:14 Actigall 300mg PO 06/19/16 09:59 900 mg QAM AGUSTINA Administration Ursodiol 600 mg 05/20/16 22:00 Actigall 300mg PO 06/19/16 21:59 QPM AGUSTINA Intake & Output (Last 24 hours) 05/18/16 05/19/16 05/20/16 05/21/16 11:59 11:59 11:59 11:59 Intake Total 2448 Balance 2448 Weight 101.151 kg Laboratory Results (Last 24 hours) 05/20/16 05/20/16 05/19/16 05:37 00:08 15:58 WBC RBC Hgb Hct MCV MCH MCHC RDW Plt Count MPV Segmented Neutrophils Lymphocytes (Manual) Monocytes (Manual) Differential Comment Platelet Estimate VBG pH VBG pCO2 at Pat Temp VBG pO2 at Pat Temp VBG HCO3 VBG O2 Sat (Tae) VBG Base Excess VBG Hemoglobin VBG Carboxyhemoglobin POC Potassium Sodium 139 135 L Potassium 3.4 L 3.5 Chloride 103 100 Carbon Dioxide 25.8 26.6 Anion Gap 13.6 12.3 BUN 52 H 58 H Creatinine 2.69 H 2.99 H Estimated GFR 26 23 Glucose 152 H 173 H > 750 H* Lactic Acid Calcium 8.6 8.6 Total Bilirubin AST ALT Alkaline Phosphatase Serum Total Protein Albumin 05/19/16 05/19/16 05/19/16 15:54 15:54 15:46 WBC 9.1 RBC 4.06 L Hgb 10.9 L Hct 31.1 L MCV 76.6 L MCH 26.8 MCHC 35.0 RDW 15.5 H Plt Count 204 MPV 11.0 H Segmented Neutrophils 85 H Lymphocytes (Manual) 10 L Monocytes (Manual) 5 Differential Comment NORMAL Platelet Estimate NORMAL VBG pH 7.35 VBG pCO2 at Pat Temp 47 VBG pO2 at Pat Temp 49 H VBG HCO3 25.9 VBG O2 Sat (Tae) 87.4 L VBG Base Excess -0.1 VBG Hemoglobin 10.9 VBG Carboxyhemoglobin 6.3 POC Potassium 3.9 Sodium 123 L Potassium 3.7 Chloride 86 L Carbon Dioxide 23.5 Anion Gap 17.4 H BUN 62 H Creatinine 3.61 H Estimated GFR 19 Glucose 855 H* Lactic Acid 2.3 H Calcium 8.5 Total Bilirubin 0.4 AST 13 L ALT 21 Alkaline Phosphatase 172 H Serum Total Protein 7.3 Albumin 3.2 L Orders (Last 24 hours) Category Date Time Status Bedrest ROUTINE Activity 05/19/16 20:22 Active Bedrest with BRP/BSC ROUTINE Activity 05/19/16 19:09 Active ACCUCHECK [Accucheck] ACHS Care 05/20/16 08:30 Active Accucheck STAT Care 05/19/16 15:46 Completed Admission/Status Order ROUTINE Care 05/19/16 19:09 Active Call Admit Doctor for Orders ON ADMISSION Care 05/19/16 19:09 Active Code Status Order ROUTINE Care 05/19/16 19:09 Active EKG-ER Only STAT Care 05/19/16 16:03 Completed IV Care Q1H Care 05/19/16 19:09 Active IV Insertion STAT Care 05/19/16 15:46 Completed IV Insertion-2nd Peripheral STAT Care 05/19/16 15:46 Inactive Nursing [Miscellaneous Nursing Order] ROUTINE Care 05/19/16 20:21 Active Weight,Daily 0600 Care 05/21/16 20:38 Active Cardio-Pulmonary Rehab .as ordered Cons 05/19/16 20:02 Active 1800 Calorie ADA Diet 05/20/16 Breakfast Completed NPO Diet 05/19/16 17:38 Completed Nutritional Admission Screen Diet 05/19/16 20:22 Active CHEST 1 VIEW (PORTABLE) Stat Exams 05/19/16 15:51 Completed BMP Routine Lab 05/20/16 00:08 Completed BMP Routine Lab 05/20/16 05:37 Completed CBC W DIFF Stat Lab 05/19/16 15:54 Completed CMP Stat Lab 05/19/16 15:54 Completed Glucose,Critical Care Stat Lab 05/19/16 15:58 Completed HEMOGLOBIN A1C Urgent Lab 05/20/16 05:37 Completed Lactic Acid Urgent Lab 05/19/16 15:46 Completed Manual Differential NC Stat Lab 05/19/16 15:54 Completed VENOUS BLOOD GAS Urgent Lab 05/19/16 15:46 Completed Albuterol 2.5 mg/3 ml Neb [Proventil 2.5 mg/3 ml Neb Med 05/19/16 21:25 Discontinued ] 2.5 mg IH Q4H PRN PRN Amlodipine Besylate 5 mg [Norvasc 5 mg] Med 05/20/16 10:00 Discontinued 10 mg PO DAILY Budesonide/Formoterol Fumarate [Symbicort 160-4.5 Mcg Med 05/20/16 10:00 Discontinued Inhaler] 2 puff IH BID Calcitriol [Calcitriol] Med 05/20/16 09:15 Discontinued 0.5 mcg PO UD Cholecalciferol (Vitamin D3) [Vitamin D] Med 05/20/16 09:15 Discontinued 50,000 unit PO UD Dabigatran Etexilate 75 mg [Pradaxa 75 mg] Med 05/20/16 10:00 Discontinued 75 mg PO BID Furosemide 40 mg [Lasix 40 MG] Med 05/20/16 10:00 Discontinued 40 mg PO BID DIURETIC HydrALAzine HCL 25 MG TAB [Apresoline 25 MG TABLET Med 05/20/16 10:00 Discontinued *] 50 mg PO TID Hydrochlorothiazide 25 mg [hydroDIURIL 25 MG] Med 05/20/16 10:00 Discontinued 25 mg PO DAILY Hydrocodone/APAP 5/325 [Grafton 5/325 mg] Med 05/20/16 01:11 Discontinued 1 tab PO Q4H PRN PRN Insulin Aspart [NovoLOG Insulin] Med 05/20/16 11:30 Discontinued 40 unit SQ TIDAC Insulin Glargine [Lantus Insulin] Med 05/20/16 10:45 Discontinued 80 unit SQ BID Insulin Glargine [Lantus Insulin] Med 05/20/16 01:30 Discontinued 80 unit SQ HS Insulin Regular, Human [NovoLIN R] Med 05/19/16 17:22 Discontinued 100 unit .ROUTE .STK-MED ONE Labetalol HCl 100 mg [Trandate 100 MG] Med 05/20/16 10:00 Discontinued 300 mg PO BID Levothyroxine Sodium 88 Mcg [Synthroid 88 Mcg] Med 05/20/16 10:00 Discontinued 88 mcg PO DAILY Losartan Potassium 50 mg [Cozaar 50 MG] Med 05/20/16 10:00 Discontinued 100 mg PO DAILY Magnesium Oxide 400 mg [Mag-Ox 400] Med 05/20/16 10:00 Discontinued 400 mg PO DAILY Metolazone 2.5 mg [Zaroxolyn 2.5 MG] Med 05/20/16 10:00 Discontinued 5 mg PO [id number] Mycophenolate Mofetil [Cellcept] Med 05/20/16 10:00 Discontinued 500 mg PO BID NaCl 0.9% 1000 ml + KCl 40 Meq [SODIUM CHLORIDE 0.9% W/ Med 05/19/16 21:00 Discontinued 40 mEq KCL 1000ML] 1,000 ml IV 200 mls/hr NaCl 0.9% 1000 ml [Sodium Chloride 0.9% 1000 ML] 1,000 Med 05/19/16 15:48 Discontinued ml .ROUTE UD NaCl 0.9% 1000 ml [Sodium Chloride 0.9% 1000 ML] 1,000 Med 05/19/16 20:10 Discontinued ml .ROUTE UD NaCl 0.9% 1000 ml [Sodium Chloride 0.9% 1000 ML] 1,000 Med 05/19/16 15:46 Discontinued ml IV 999 mls/hr NaCl 0.9% 100Ml [Sodium Chloride 0.9% 100 ML IVPB] 100 Med 05/19/16 17:15 Discontinued ml Insulin Reg Human Rec [Novolin R Insulin (For Drips)* *] 100 units IV 10 units/hr NaCl 0.9% 100Ml [Sodium Chloride 0.9% 100 ML IVPB] 100 Med 05/19/16 20:56 Discontinued ml Insulin Reg Human Rec [Novolin R Insulin (For Drips)* *] 100 units IV 10 units/hr NaCl 0.9% 100Ml [Sodium Chloride 0.9% 100 ML IVPB] 100 Med 05/19/16 17:22 Discontinued ml IV UD Nitroglycerin 0.4 mg Tablet [Nitrostat 0.4 MG Tablet Med 05/20/16 09:15 Discontinued ] 0.4 mg SL Q5MIN PRN MR X 3 Ondansetron ODT 4 MG [Zofran Odt 4 mg] Med 05/20/16 09:13 Discontinued 4 mg PO DAILY PRN PRN Ranolazine 500 MG [Ranexa 500 MG] Med 05/20/16 10:00 Discontinued 1,000 mg PO DAILY Simvastatin 20Mg [Zocor 20Mg] Med 05/20/16 22:00 Discontinued 20 mg PO HS Tamsulosin HCl 0.4 mg [Flomax 0.4 MG] Med 05/20/16 10:00 Discontinued 0.4 mg PO DAILY Ursodiol 300 mg [Actigall 300MG] Med 05/20/16 22:00 Discontinued 600 mg PO QPM Ursodiol 300 mg [Actigall 300MG] Med 05/20/16 10:00 Discontinued 900 mg PO BID Ursodiol 300 mg [Actigall 300MG] Med 05/20/16 10:00 Discontinued 900 mg PO QAM Oxygen NASAL CANNULA 2 lpm RT 05/19/16 20:20 Active RT Screen per Nursing Assess ONCE RT 05/19/16 20:22 Completed Smoking Cessation Education ONCE RT 05/19/16 20:22 Completed neb [Respiratory Nebulizer] PRN RT 05/19/16 21:27 Active Transfer Order Routine Transfer 05/19/16 17:37 Completed Patient Care Notes (Last 24 hours) 05/20/16 11:36 Nursing Note by Jaskaran Meyer IV discontinued and coban 2" used as pt states "I want it wrapped tight since I bleed quite a bit usually". Initialized on 05/20/16 11:36 - END OF NOTE 05/19/16 21:29 Respiratory Note by Kirt Barahona PT STATES HE DOESNT USE HIS CPAP AT HOME AND HASN'T USED IT MUCH AT ALL IN THE LAST FEW YEARS THAT HE HAS HAD IT. PT STATES HE WILL HAVE FAMILY BRING IN HIS PT OWNED SYMBICORT IN THE AM SO I WILL HOLD OFF ON THE MDI ORDER AT THIS TIME AND PASS INFO ON TO DAY SHIFT. Initialized on 05/19/16 21:29 - END OF NOTE 05/19/16 20:33 Nursing Note by Caridad Horton Pt refused 2 IV site that was ordered from ER. Initialized on 05/19/16 20:33 - END OF NOTE 05/19/16 17:46 Nursing Note by Polina Moore INSULIN IN DRIP VERIFIED WITH TWO NURSES DRIP PREPARED VIA BOOK IN ER 100 UNITS NOVOLIN R AND 100ML NS 0.9% STARTED AT 10UNITS AN HOUR PER MD ORDER VERIFIED X 2 RNS. HLAFAVE Initialized on 05/19/16 17:46 - END OF NOTE - Vitals & Intake/Output Vital Signs: Vital Signs Temperature 98.4 F 05/20/16 08:00 Pulse Rate 92 H 05/20/16 08:16 Respiratory Rate 16 05/20/16 08:16 Blood Pressure 150/76 05/20/16 08:00 O2 Sat by Pulse Oximetry 96 05/20/16 08:16 Oxygen-Last Documented O2 Percentage 2 Liters = 28% Intake & Output: Intake & Output 05/18/16 05/19/16 05/20/16 05/21/16 11:59 11:59 11:59 11:59 Intake Total 2448 Balance 2448 Weight 101.151 kg - Lab Result Diagrams: 05/19/16 15:54 05/20/16 05:37 Lab Results-Last 24 Hrs: Accuchecks Date 05/20/16 Date 05/20/16 Date 05/20/16 Date 05/20/16 Date 05/20/16 Date 05/19/16 Date 05/19/16 Date 05/19/16 Date 05/19/16 Date 05/19/16 Time 10:42 Time 05:37 Time 03:56 Time 02:30 Time 01:00 Time 22:10 Time 22:10 Time 22:10 Time 21:05 Time 20:00 Accucheck Value: 164 Accucheck Value: 204 Accucheck Value: 181 Accucheck Value: 181 Accucheck Value: 122 Accucheck Value: 238 Accucheck Value: 461 Lab Results-Last 24 Hours 05/20/16 05/20/16 Range/Units 00:08 05:37 Sodium 135 L 139 (136-145) mEq/L Potassium 3.5 3.4 L (3.5-5.1) mEq/L Chloride 100 103 (98-107) mEq/L Carbon Dioxide 26.6 25.8 (21-32) mEq/L Anion Gap 12.3 13.6 (5-15) MEQ/L BUN 58 H 52 H (9-20) mg/dL Creatinine 2.99 H 2.69 H (0.55-1.30) mg/dl Estimated GFR 23 26 ML/MIN Glucose 173 H 152 H (70-110) MG/DL Calcium 8.6 8.6 (8.5-10.1) mg/dL Micro Results-Entire Visit: Accuchecks Date 05/20/16 Date 05/20/16 Date 05/20/16 Date 05/20/16 Date 05/20/16 Date 05/19/16 Date 05/19/16 Date 05/19/16 Date 05/19/16 Date 05/19/16 Time 10:42 Time 05:37 Time 03:56 Time 02:30 Time 01:00 Time 22:10 Time 22:10 Time 22:10 Time 21:05 Time 20:00 Accucheck Value: 164 Accucheck Value: 204 Accucheck Value: 181 Accucheck Value: 181 Accucheck Value: 122 Accucheck Value: 238 Accucheck Value: 461 - Procedures and Test Procedures and Tests throughout Hospitalization: Therapy Orders & Screens 05/19/16 20:20 Oxygen NASAL CANNULA 2 lpm Comment: Keeps Sats greater than 95% Diagnosis: hyperglycemia 05/19/16 20:22 RT Screen per Nursing Assess ONCE Comment: Protocol Order Physician Instructions: Greater than 3 points order RT Admission Screen Reason For Exam: Triggered on Admission Diagnosis: hyperglycemia Diagnosis: hyperglycemia Pneumonia: No Home O2: No Asthma: No CHF: Yes Home CPAP/BIPAP: Yes Home Nebs/MDI: Yes Total Points: 13 Smoking Cessation Education ONCE Comment: Diagnosis: hyperglycemia Smoking Status: Current every day smoker How long have you smoked: 35 Have you smoked in the past 12 months: Yes Approximately how many cigarettes per day: 1 PACK Do you dip or chew tobacco: No 05/19/16 21:27 neb [Respiratory Nebulizer] PRN Comment: Q4PRN Diagnosis: hyperglycemia - Discharge Discharge Date: 05/20/16 Disposition: Home, Self-Care Condition: Stable Prescriptions: New Albuterol 2.5 mg/3 ml Neb [Proventil 2.5 mg/3 ml Neb] 2.5 mg IH Q4H PRN PRN #0 neb PRN Reason: Shortness Of Breath/Wheezing Hydrochlorothiazide 25 mg [hydroDIURIL 25 MG] 25 mg PO DAILY #0 tablet Ursodiol 300 mg [Actigall 300MG] 600 mg PO QPM #0 cap Continue Albuterol Sulfate [Proventil Hfa] 6.7 gm IH .UNKNOWN PRN PRN Reason: BREATHING Labetalol HCl [Trandate] 200 mg PO BID Nitroglycerin 0.4 mg Tablet [Nitrostat 0.4 MG Tablet] 0.4 mg SL Q5MIN PRN MR X 3 Cholecalciferol (Vitamin D3) [Vitamin D3] 50,000 unit PO UD Ursodiol 300 mg [Actigall 300MG] 900 mg PO BID Amlodipine Besylate 10 mg [Norvasc 10 MG] 10 mg PO DAILY Ondansetron [Zofran Odt] 4 mg PO DAILY PRN PRN Reason: N/V Mycophenolate Mofetil [Cellcept] 500 mg PO BID Sildenafil Citrate [Viagra] 50 mg PO DAILY PRN Levothyroxine Sodium 88 Mcg [Synthroid 88 Mcg] 88 mcg PO DAILY Budesonide/Formoterol Fumarate [Symbicort 160-4.5 Mcg Inhaler] 2 puff IH BID Insulin Detemir [Levemir] 80 unit SQ BID Dabigatran Etexilate Mesylate [Pradaxa] 75 mg PO BID Tamsulosin HCl 0.4 mg [Flomax 0.4 MG] 0.4 mg PO DAILY Hydralazine HCl 50 mg PO TID Metolazone 5 mg PO UD Magnesium Oxide [Magnesium] 500 mg PO DAILY Calcitriol 0.5 mcg PO UD Ranolazine 500 MG [Ranexa 500 MG] 500 mg PO BID Insulin Aspart [Novolog Flexpen] 40 unit SQ TIDAC Losartan Potassium [Hyzaar 100-25] 1 tab PO DAILY Hydrocodone Bit/Acetaminophen [Hydrocodon-Acetaminophen 5-325] 1 each PO Q6HPRN PRN PRN Reason: Pain Atorvastatin Calcium [Lipitor 20MG Tablet] 20 mg PO QHS Torsemide 20 mg PO BID Instructions: Carbohydrate-Counting Diet, Diabetes Type 2, Hyperglycemia -- Adult Follow up with: CONNIE DYSON MD [Primary Care Provider] - 05/27/16 9:00 am (At [facility] ) Forms: Discharge Instructions
[2016-05-20] MEDS ORDERED: NON-FORMULARY ITEM (Atorvastatin Calcium 20 MG) PO SCH (22:00)
[2016-05-20] MEDS ORDERED: ZOCOR 20MG PO SCH (22:00)
== END 2016-05-20 11:45 | disposition home or self-care (01) ==
LOC: ED 14:57 → ICU 18:34
PROVIDERS: ADMIT General Practice; ATTEND General Practice
DX: E11.65 Type 2 diabetes mellitus with hyperglycemia (principal); K76.9 Liver disease, unspecified; N28.9 Disorder of kidney and ureter, unspecified; J45.909 Unspecified asthma, uncomplicated; J44.9 Chronic obstructive pulmonary disease, unspecified; G47.30 Sleep apnea, unspecified; I50.9 Heart failure, unspecified; I25.810 Atherosclerosis of coronary artery bypass graft(s) without angina pectoris; I10 Essential (primary) hypertension; I25.2 Old myocardial infarction; K75.9 Inflammatory liver disease, unspecified; F41.8 Other specified anxiety disorders; Z79.899 Other long term (current) drug therapy; Z95.0 Presence of cardiac pacemaker; Z79.4 Long term (current) use of insulin
CPT/HCPCS: 36000; 36415; 71010; 80048; 80053; 82805; 82947; 82962; 83036; 83605; 85025; 93005; 94760; 96360; 96361; 96365; 99284; 99285; G0378; J1815

== ENCOUNTER 2020-12-23 06:03 | Emergency (ER) | payer MEDICARE ==
[2020-12-23] MEDS ORDERED: Zofran 4 MG/2 ML VIAL IV ONE (07:30)
--- NOTE | 2020-12-23 07:35 | ERPHSYRPT ---
- History of Present Illness Historian: patient Exam Limitations: no limitations Patient Subjective Stated Complaint: pt states "I have been vomiting for the past 40 hours." Triage Nursing Assessment: pt came into the er via wheelchair; pt is axo x4; c/o N/V; pt states 7/10 pain to abd; pt states "pain is like a hunger feeling."; pt states that he is unable to keep anything down; pt has hx of renal disease; pt is to have dialysis today; pt denies fever or diarrhea; pt states he only urinates ever couple of days; pt states BM late monday night; pt states that he feels his abdomen is bloated; abd is obese, round, firm, distended; hyperactive bowel sounds in all quads; no tenderness present with palpation; fistula present to rt arm; hypertensive Physician History: 60 yo wm w h/o ESRD on dialysis x5yrs due to DM/HTN presents w N/V x2 days. Pt is due for dialysis today and is currently missing his appointment. He denies hematemesis/diarrhea/melena/hematochezia/fever/chest pain/progressing dyspnea. Pt stated that he received full dialysis session 2 days ago. Pt has a h/o CAD/ID/Stents/CABG/1.5 ppd smoker until 2 yrs ago. Timing/Duration: other (2 days) Quality: cramping Abdominal Pain Onset Location: generalized abdomen Severity of Pain-Max: moderate Severity of Pain-Current: mild Modifying Factors: Improves With: vomiting (Worse w vomiting) Associated Symptoms: loss of appetite, nausea, vomiting, No back, No chest pain, No diaphoresis, No diarrhea, No fever/chills, No fatigue, No headache, No heartburn, No neck pain, No rash, No shortness of breath, No syncope, No weakness Previous symptoms: same symptoms as today Allergies/Adverse Reactions: dulaglutide [From Trulicity] Allergy (Intermediate, Verified 12/23/20 06:24) Stomach Cramps bumetanide Allergy (Mild, Verified 12/23/20 06:24) Rash cephalexin [Cephalexin] Allergy (Mild, Verified 12/23/20 06:24) Hives Home Medications: Albuterol Sulfate [Proventil Hfa] 6.7 gm IH .UNKNOWN PRN 05/24/14 [History] Amlodipine Besylate 10 mg [Norvasc 10 MG] 5 mg PO DAILY 05/24/14 [History] Budesonide/Formoterol Fumarate [Symbicort 160-4.5 Mcg Inhaler] 2 puff IH BID 05/24/14 [History] Insulin Detemir [Levemir] 80 unit SQ BID 05/24/14 [History] Labetalol HCl [Trandate] 200 mg PO BID 05/24/14 [History] Levothyroxine Sodium 88 Mcg [Synthroid 88 Mcg] 88 mcg PO DAILY 05/24/14 [History] Mycophenolate Mofetil [Cellcept] 500 mg PO BID 05/24/14 [History] Nitroglycerin 0.4 mg Tablet [Nitrostat 0.4 MG Tablet] 0.4 mg SL Q5MIN PRN MR X 3 05/24/14 [History] Ondansetron [Zofran Odt] 4 mg PO DAILY PRN 05/24/14 [History] Sildenafil Citrate [Viagra] 50 mg PO DAILY PRN 05/24/14 [History] Magnesium Oxide [Magnesium] 500 mg PO DAILY 04/17/15 [History] Tamsulosin HCl 0.4 mg [Flomax 0.4 MG] 0.4 mg PO DAILY 04/17/15 [History] Ranolazine 500 MG [Ranexa 500 MG] 500 mg PO BID 12/11/15 [History] Atorvastatin Calcium [Lipitor 20MG Tablet] 20 mg PO QHS 05/19/16 [History] Hydrocodone Bit/Acetaminophen [Hydrocodon-Acetaminophen 5-325] 1 each PO Q6HPRN PRN 05/19/16 [History] Insulin Aspart [Novolog Flexpen] 40 unit SQ TIDAC 05/19/16 [History] Losartan Potassium [Hyzaar 100-25] 25 mg PO DAILY 05/19/16 [History] ALPRAZolam 1 MG [Xanax 1 mg] 1 mg PO TIDPRN 01/25/19 [History] Apixaban [Eliquis] 5 mg PO BID 01/25/19 [History] Clopidogrel Bisulfate 75 mg [PLAVIX 75 MG Tablet] 75 mg PO DAILY 01/25/19 [History] Fexofenadine HCl 60 mg PO DAILY 01/25/19 [History] Furosemide 40 mg [Lasix 40 MG] 80 mg PO DAILY 01/25/19 [History] Meclizine HCl 25 mg [Antivert 25 mg] 25 mg PO BIDPRN PRN 01/25/19 [History] PANTOPRAZOLE 40 mg Tablet [Protonix 40MG Tablet] 40 mg PO BID 01/25/19 [History] Ursodiol 300 mg [Actigall 300MG] 250 mg PO QPM 01/25/19 [History] Hx Tetanus, Diphtheria Vaccination/Date Given: No (unknown) Hx Influenza Vaccination/Date Given: Yes (2020) Hx Pneumococcal Vaccination/Date Given: No (unknown) Travel Risk - International Travel Have you traveled outside of the country in past 3 weeks: No - Coronavirus Screening Are you exhibiting any of the following symptoms?: Yes Symptoms: Vomiting/Diarrhea Close contact with a COVID-19 positive Pt in past 14-21 Days: No - Vaccine Status Have you recieved a Covid-19 vaccination: Yes Shot Dropper: Moderna - Vaccination Dates Date of 2cond Vaccination (if applicable): 07/10/20 Comment: 3rd dose on 12/09/20 - Review of Systems Constitutional: No Symptoms, Weakness Eyes: No Symptoms Ears, Nose, & Throat: No Symptoms Respiratory: No Symptoms Cardiac: No Symptoms Abdominal/Gastrointestinal: No Symptoms, Abdominal Pain, Nausea, Vomiting Genitourinary Symptoms: No Symptoms Musculoskeletal: No Symptoms Skin: No Symptoms Neurological: No Symptoms Psychological: No Symptoms Endocrine: No Symptoms Hematologic/Lymphatic: No Symptoms Immunological/Allergic: No Symptoms - Past Medical History Pertinent Past Medical History: Yes Neurological History: No Pertinent History ENT History: No Pertinent History Cardiac History: Arrhythmia, Congestive Heart Failure, Coronary Artery Disease, Hypertension, Myocardial Infarction (ID), Other Respiratory History: Asthma, COPD, Sleep Apnea Endocrine Medical History: Diabetes Type II, Liver Disease Musculoskeletal History: Arthritis, Fractures, Other GI Medical History: Hepatitis, Hernia History: Renal Disease Psycho-Social History: Anxiety Male Reproductive Disorders: No Pertinent History Other Medical History: diabetic foot ulcers - Past Surgical History Past Surgical History: Yes Neuro Surgical History: No Pertinent History Cardiac: CABG, Cardiac Catheterization, Pacemaker Respiratory: No Pertinent History Gastrointestinal: Hernia Repair Genitourinary: No Pertinent History Musculoskeletal: Amputation Male Surgical History: No Pertinent History Other Surgical History: open heart for afib, multiple heart caths with stents, pilonidal cyst from tail bone, umbilical hernia. stents pattie legs, rt foot amputation; fistula to rt arm - Social History Smoking Status: Former smoker How long have you smoked: 35 Exposure to second hand smoke: No Drug Use: none Patient Lives Alone: No Significant Family History: no pertinent family hx - Nursing Vital Signs Nursing Vital Signs: Initial Vital Signs Temperature 99.3 F 12/23/20 06:24 Pulse Rate 65 12/23/20 06:24 Respiratory Rate 24 12/23/20 06:24 Blood Pressure 148/74 12/23/20 06:24 O2 Sat by Pulse Oximetry 100 12/23/20 06:24 Pain Scale Pain Intensity 4 VS wnl - Physical Exam General Appearance: no apparent distress Eye Exam: PERRL/EOMI, eyes nml inspection Ears, Nose, Throat Exam: normal ENT inspection, TMs normal, pharynx normal, moist mucous membranes Neck Exam: normal inspection, non-tender, supple, full range of motion, No meningismus, No mass, No Brudzinski, No Kernig's, No carotid bruit Respiratory Exam: airway intact, diminished breath sounds (B bases), No chest tenderness, No respiratory distress Cardiovascular Exam: regular rate/rhythm, normal heart sounds, normal peripheral pulses, No murmur Gastrointestinal/Abdomen Exam: soft, normal bowel sounds, No tenderness Back Exam: normal inspection, normal range of motion, No CVA tenderness Extremity Exam: other (R forearm shunt thrill) Neurologic Exam: alert, oriented x 3, cooperative, 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, normal mood/affect, nml cerebellar function, nml station & gait, sensation nml, No motor deficits, No sensory deficit Skin Exam: normal color, warm, dry, No rash Lymphatic Exam: No adenopathy SpO2 Interpretation: normal SpO2: 100 O2 Delivery: Room Air - Course EKG Interpreted by Me: RATE (NSR/IVCD/Prolonged QT-QTc/Poor R wave progression) - CT Exams Abdomen/Pelvis CT Interpretation: Discussed w/radiologist (CT ab-pelvis wo-distended bladder/nothing acute) Ordered Tests: Active Orders 24 hr Category Date Time Status EKG-ER Only STAT Care 12/23/20 07:29 Active ABDOMEN AND PELVIS W/0 CONTRAS [CT] Stat Exams 12/23/20 08:51 Completed CBC W DIFF Stat Lab 12/23/20 07:10 Completed CMP Stat Lab 12/23/20 07:10 Completed TROPONIN Q3H Lab 12/23/20 07:10 Completed TROPONIN Q3H Lab 12/23/20 10:30 Ordered TROPONIN Q3H Lab 12/23/20 13:30 Ordered TROPONIN Q3H Lab 12/23/20 16:30 Ordered TROPONIN Q3H Lab 12/23/20 19:30 Ordered Medication Summary Discontinued Medications Generic Name Dose Route Start Last Admin Trade Name Freq PRN Reason Stop Dose Admin Metoclopramide HCl 10 mg 12/23/20 08:59 12/23/20 09:08 Reglan 10 Mg/2 Ml IV 12/23/20 09:00 10 mg STAT ONE Administration Metoclopramide HCl Confirm 12/23/20 09:03 Reglan 10 Mg/2 Ml Administered 12/23/20 09:04 Dose 10 mg .ROUTE .STK-MED ONE Ondansetron HCl 8 mg 12/23/20 07:30 12/23/20 07:44 Zofran 4 Mg/2 Ml Vial IV 12/23/20 07:31 8 mg STAT ONE Administration Ondansetron HCl Confirm 12/23/20 07:42 Zofran 4 Mg/2 Ml Vial Administered 12/23/20 07:43 Dose 8 mg .ROUTE .STK-MED ONE Lab/Rad Data: Laboratory Result Diagrams 12/23/20 07:10 12/23/20 07:10 Laboratory Results 12/23/20 12/23/20 12/23/20 Range/Units 07:10 07:10 07:10 WBC 8.1 (4.0-10.5) K/mm3 RBC 3.77 L (4.1-5.6) M/mm3 Hgb 10.7 L (12.5-18.0) gm/dl Hct 33.6 L (42-50) % MCV 89.1 (78-100) fl MCH 28.4 (26-32) pg MCHC 31.8 L (32-36) g/dl RDW 17.7 H (11.5-14.0) % Plt Count 163 (150-450) K/mm3 MPV 9.9 (7.5-11.0) fl Gran % 78.4 H (36.0-66.0) % Eos # (Auto) 0.09 (0-0.5) Absolute Lymphs (auto) 1.11 (1.0-4.6) Absolute Monos (auto) 0.52 (0.0-1.3) Lymphocytes % 13.7 L (24.0-44.0) % Monocytes % 6.4 (0.0-12.0) % Eosinophils % 1.1 (0.00-5.0) % Basophils % 0.4 (0.0-0.4) % Absolute Granulocytes 6.37 (1.4-6.9) Basophils # 0.03 (0-0.4) Sodium 134 L (137-145) mmol/L Potassium 4.7 (3.5-5.1) mmol/L Chloride 92 L (98-107) mmol/L Carbon Dioxide 29 (22-30) mmol/L Anion Gap 17.8 H (5-15) MEQ/L BUN 35 H (9-20) mg/dL Creatinine 6.65 H (0.66-1.25) mg/dL Estimated GFR 9.1 ML/MIN Glucose 236 H (74-106) mg/dL Calcium 9.2 (8.4-10.2) mg/dL Total Bilirubin 0.70 (0.2-1.3) mg/dL AST 22 (17-59) U/L ALT 15 (0-50) U/L Alkaline Phosphatase 121 (38-126) U/L Troponin I < 0.012 (0.000-0.034) ng/mL Serum Total Protein 6.9 (6.3-8.2) g/dL Albumin 4.1 (3.5-5.0) g/dL - Progress Progress Note: 12/23/20 10:12 8mg IV Zofran w mild improvement in nausea 10mg IV Reglan w definite improvement in nausea Dialysis appointment arranged at 16:00 today in [place] Counseled pt/family regarding: lab results, diagnosis, need for follow-up, rad results - Departure Departure Disposition: Home Clinical Impression: Nausea Condition: Stable Critical Care Time: No Referrals: CONNIE DYSON MD [Primary Care Provider] - Instructions: Nausea and Vomiting, Adult (DC) Additional Instructions: Dialysis today at 4:00 in [place] Return to ER as needed
[2020-12-23] MEDS ORDERED: Zofran 4 MG/2 ML VIAL ONE (07:42)
[2020-12-23 07:53] LABS: Absolute Neutrophil Ct (ANC) 6.37 (1.4-6.9); BASOPHIL % 0.4 % (0.0-0.4); Basophil (Absolute #) 0.03 (0-0.4); Eosinophil % 1.1 % (0.00-5.0); Eosinophil (Absolute #) 0.09 (0-0.5); Hematocrit 33.6 % (42-50); Hemoglobin 10.7 gm/dl (12.5-18.0); Lymphocyte (Absolute #) 1.11 (1.0-4.6); Lymphocytes % 13.7 % (24.0-44.0); Mean Cell Volume 89.1 fl (78-100); Mean Corpuscular Hemoglobin 28.4 pg (26-32); Mean Corpuscular Hgb Concent. 31.8 g/dl (32-36); Mean Platelet Volume 9.9 fl (7.5-11.0); Monocyte (Absolute #) 0.52 (0.0-1.3); Monocytes % 6.4 % (0.0-12.0); Neutrophil % 78.4 % (36.0-66.0); Platelet Count 163 K/mm3 (150-450); Red Blood Count 3.77 M/mm3 (4.1-5.6); Red Cell Distribution Width 17.7 % (11.5-14.0); White Blood Count 8.1 K/mm3 (4.0-10.5)
[2020-12-23 08:35] LABS: ALBUMIN 4.1 g/dL (3.5-5.0); ANION GAP 17.8 MEQ/L (5-15); BILIRUBIN,TOTAL 0.7 mg/dL (0.2-1.3); Calcium 9.2 mg/dL (8.4-10.2); Creatinine 1 6.65 mg/dL (0.66-1.25); EST GLOMERULAR FILTRATION RATE 9.1 ML/MIN; Potassium 4.7 mmol/L (3.5-5.1); Total Protein 6.9 g/dL (6.3-8.2)
[2020-12-23] MEDS ORDERED: Reglan 10 MG/2 ML IV ONE (08:59)
[2020-12-23] MEDS ORDERED: Reglan 10 MG/2 ML ONE (09:03)
--- NOTE | 2020-12-23 10:04 | XRAY ---
Indication: Weakness and fatigue. Dialysis patient. Multiple contiguous axial images obtained through the abdomen and pelvis without contrast. Comparison: June 08, 2011. Lung bases again demonstrates moderate right and minimal left base subsegmental atelectasis/scarring. Heart is borderline enlarged again with cardiac pacer leads and sternotomy wires. Noncontrasted stomach and bowel loops nonobstructed. There remains diffuse scattered colonic diverticulosis without diverticulitis. Urinary bladder again moderately distended concerning for outlet obstruction versus neurogenic bladder. No free fluid/air. Spleen remains enlarged measuring 15.2 cm. Both kidneys again demonstrates mild nonspecific perinephric stranding with new scattered vascular calcifications. Remaining liver, gallbladder, pancreas, spleen, adrenal glands, kidneys, ureters, and bladder are unremarkable for noncontrast exam. Worsening mild/moderate scattered aortoiliac calcifications without AAA. Osseous structures intact again with mild degenerative changes throughout the thoracolumbar spine. Impression: 1. Distended urinary bladder. Rule out outlet obstruction versus neurogenic bladder. 2. Again scattered colonic diverticulosis without diverticulitis, splenomegaly, and bibasilar subsegmental atelectasis/scarring. 3. Worsening scattered arteriosclerotic disease including renal arteries. 4. Remaining CT abdomen/pelvis without contrast exam is negative.
[2020-12-23 10:07] VITALS: BP 127/82; PULSE 88
[2020-12-23 10:14] VITALS: O2SAT 100
== END 2020-12-23 10:23 | disposition home or self-care (01) ==
LOC: ED 06:03
DX: R11.2 Nausea with vomiting, unspecified (principal); N18.6 End stage renal disease; E11.9 Type 2 diabetes mellitus without complications; I10 Essential (primary) hypertension; Z79.899 Other long term (current) drug therapy; I50.9 Heart failure, unspecified; I25.10 Atherosclerotic heart disease of native coronary artery without angina pectoris; I25.2 Old myocardial infarction; Z99.2 Dependence on renal dialysis; R10.9 Unspecified abdominal pain
CPT/HCPCS: 36000; 36415; 74176; 80053; 84484; 85025; 93005; 96374; 96375; 99284; J2405

== ENCOUNTER 2023-03-21 02:40 | Emergency (ER) | payer MEDICARE ==
[2023-03-21 02:48] VITALS: TEMP 97.6
[2023-03-21] MEDS ORDERED: Zofran 4 MG/2 ML VIAL IV ONE (02:52)
[2023-03-21] MEDS ORDERED: SUBLIMAZE 100 MCG/2 ML IV ONE (02:52)
[2023-03-21] MEDS ORDERED: DUONEB 0.5-3 MG/3 ml Neb IH ONE ×2 (02:55→03:00)
[2023-03-21] MEDS ORDERED: Sodium Chloride 0.9% 250 ML 250 ML IV SCH (03:00)
[2023-03-21] MEDS ORDERED: Zofran 4 MG/2 ML VIAL ONE (03:20)
[2023-03-21] MEDS ORDERED: Sodium Chloride 0.9% 250 ML 250 ML IV ONE (03:21)
[2023-03-21 03:32] LABS: A-aADO2 570; ABG HEMOGLOBIN 9.9; ABG POTASSIUM 5.7 (3.5-5.1); ARTERIAL BLD GAS O2 SATURATION 94.7 % (95-100); ARTERIAL BLOOD GAS BASE EXCESS 0.5 (-2.0-2.0); ARTERIAL BLOOD GAS FIO2 100 %; ARTERIAL BLOOD GAS PCO2 56 mmHg (35-45); ARTERIAL BLOOD GAS PO2 73 mmHg (75-100); CARBOXYHEMOGLOBIN 4.9 % THgb (0.0-6.9); HCO3- 27.6 (22-28); HGB O2 SAT 89.6 g/dF (94-100); Lactic Acid 1.8 (0.4-2.0); Methhemoglobin 0.5 % (1.4-1.5); paO2 pAO1 0.11
[2023-03-21 03:33] LABS: ABG SITE LEFT RADIAL; ALLEN TEST OK? YES
--- NOTE | 2023-03-21 03:47 | ERPHSYRPT ---
- History of Present Illness Time Seen by Provider: 03/21/23 02:43 Source: patient, EMS Patient Subjective Stated Complaint: pt states "I have pain all over." Triage Nursing Assessment: pt presents to ED via [facility], pt alert and oriented x3, pt c/o chronic pain all over, per ems patient was at [facility] in the day for same complaint and was discharged so patient requested to come to this facility, per ems patient has called ems 24 times in past month for complaint, pt is a dialysis patient and receives dialysis MWF and last dialysis was on monday d/ holiday. 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 Patient was seen at [facility] ER yesterday for similar symptoms and was discharged. Patient is h ypoxic with saturation in upper 70s/lower 80s on 4 L and increased to 6 L oxygen with saturation in upper 80s. He is also hypotensive with blood pressure in 80s. Denies any chest pain but does have cough with shortness of breath which according to patient is a chronic. Denies any abdominal pain nausea or vomiting. No fever chills or sick contact reported. Allergies/Adverse Reactions: dulaglutide [From Trulicity] Allergy (Intermediate, Verified 03/21/23 02:43) Stomach Cramps bumetanide Allergy (Mild, Verified 03/21/23 02:43) Rash cephalexin [Cephalexin] Allergy (Mild, Verified 03/21/23 02:43) Hives Home Medications: Albuterol Sulfate [Proventil Hfa] 6.7 gm IH .UNKNOWN PRN 05/24/14 [History] Amlodipine Besylate 10 mg [Norvasc 10 MG] 5 mg PO DAILY 05/24/14 [History] Budesonide/Formoterol Fumarate [Symbicort 160-4.5 Mcg Inhaler] 2 puff IH BID 05/24/14 [History] Insulin Detemir [Levemir] 80 unit SQ BID 05/24/14 [History] Labetalol HCl [Trandate] 200 mg PO BID 05/24/14 [History] Levothyroxine Sodium 88 Mcg [Synthroid 88 Mcg] 88 mcg PO DAILY 05/24/14 [History] Nitroglycerin 0.4 mg Tablet [Nitrostat 0.4 MG Tablet] 0.4 mg SL Q5MIN PRN MR X 3 05/24/14 [History] Ondansetron [Zofran Odt] 4 mg PO DAILY PRN 05/24/14 [History] Sildenafil Citrate [Viagra] 50 mg PO DAILY PRN 05/24/14 [History] mycophenolate mofetiL [Cellcept] 500 mg PO BID 05/24/14 [History] Magnesium Oxide [Magnesium] 500 mg PO DAILY 04/17/15 [History] Tamsulosin HCl 0.4 mg [Flomax 0.4 MG] 0.4 mg PO DAILY 04/17/15 [History] Ranolazine 500 MG [Ranexa 500 MG] 500 mg PO BID 12/11/15 [History] Atorvastatin Calcium [Lipitor 20MG Tablet] 20 mg PO QHS 05/19/16 [History] Hydrocodone/Acetaminophen [Hydrocodone-Acetamin 5-325 mg] 1 each PO Q6HPRN PRN 05/19/16 [History] Insulin Aspart [Novolog Flexpen] 40 unit SQ TIDAC 05/19/16 [History] Losartan Potassium [Hyzaar 100-25] 25 mg PO DAILY 05/19/16 [History] ALPRAZolam 1 MG [Xanax 1 mg] 1 mg PO TIDPRN 01/25/19 [History] Apixaban [Eliquis] 5 mg PO BID 01/25/19 [History] Clopidogrel Bisulfate [PLAVIX 75 MG Tablet] 75 mg PO DAILY 01/25/19 [History] Fexofenadine HCl 60 mg PO DAILY 01/25/19 [History] Furosemide 40 mg [Lasix 40 MG] 80 mg PO DAILY 01/25/19 [History] Meclizine HCl 25 mg [Antivert 25 mg] 25 mg PO BIDPRN PRN 01/25/19 [History] PANTOPRAZOLE 40 mg Tablet [Protonix 40MG Tablet] 40 mg PO BID 01/25/19 [History] Ursodiol 300 mg [Actigall 300MG] 250 mg PO QPM 01/25/19 [History] Hx Tetanus, Diphtheria Vaccination/Date Given: No (unknown) Hx Influenza Vaccination/Date Given: Yes (2020) Hx Pneumococcal Vaccination/Date Given: No (unknown) Travel Risk - International Travel Have you traveled outside of the country in past 3 weeks: No - Coronavirus Screening Are you exhibiting any of the following symptoms?: No Close contact with a COVID-19 positive Pt in past 14-21 Days: No - Vaccine Status Have you recieved a Covid-19 vaccination: Yes [employer]eng[employer]ving [employer]: Moderna - Vaccination Dates Date of 2cond Vaccination (if applicable): 07/10/20 - Review of Systems Constitutional: Fatigue, Weakness Eyes: No Symptoms Ears, Nose, & Throat: No Symptoms Respiratory: Cough, Dyspnea, Dyspnea on Exertion (MAN), Wheezing Cardiac: No Symptoms Abdominal/Gastrointestinal: No Symptoms Genitourinary Symptoms: No Symptoms Musculoskeletal: Back Pain Skin: No Symptoms Neurological: No Symptoms Immunological/Allergic: No Symptoms - Past Medical History Pertinent Past Medical History: Yes Neurological History: No Pertinent History ENT History: No Pertinent History Cardiac History: Arrhythmia, Congestive Heart Failure, Coronary Artery Disease, Hypertension, Myocardial Infarction ([place]), Other Respiratory History: Asthma, COPD, Sleep Apnea Endocrine Medical History: Diabetes Type II, Liver Disease Musculoskeletal History: Arthritis, Fractures, Other GI Medical History: Hepatitis, Hernia History: Renal Disease Psycho-Social History: Anxiety Male Reproductive Disorders: No Pertinent History Other Medical History: diabetic foot ulcers. dialysis - Past Surgical History Past Surgical History: Yes Neuro Surgical History: No Pertinent History Cardiac: CABG, Cardiac Catheterization, Pacemaker Respiratory: No Pertinent History Gastrointestinal: Hernia Repair Genitourinary: No Pertinent History Musculoskeletal: Amputation Male Surgical History: No Pertinent History Other Surgical History: open heart for afib, multiple heart caths with stents, pilonidal cyst from tail bone, umbilical hernia. stents pattie legs, rt foot amputation; fistula to rt arm - Social History Smoking Status: Former smoker How long have you smoked: 35 Exposure to second hand smoke: No Drug Use: none Patient Lives Alone: Yes Significant Family History: no pertinent family hx - Nursing Vital Signs Nursing Vital Signs: Initial Vital Signs Temperature 97.6 F 03/21/23 02:45 Pulse Rate 60 03/21/23 02:45 Respiratory Rate 24 03/21/23 02:45 Blood Pressure 84/43 03/21/23 02:45 O2 Sat by Pulse Oximetry 92 L 03/21/23 02:45 Pain Scale Pain Intensity [Generalized] 9 Pain Intensity 4 - Physical Exam General Appearance: mild distress, alert Eye Exam: PERRL/EOMI Ears, Nose, Throat Exam: TMs normal, pharyngeal erythema Neck Exam: normal inspection, non-tender, supple, full range of motion Respiratory Exam: diminished breath sounds, crackles/rales, wheezing Cardiovascular Exam: regular rate/rhythm, normal heart sounds Gastrointestinal/Abdomen Exam: soft, No normal bowel sounds, No tenderness Back Exam: normal inspection, other (Healing coccyx ulcer with tenderness. No erythema around.) Extremity Exam: other (Right below-knee amputation) Neurologic Exam: alert, oriented x 3, cooperative, backup administrative coordinator II-XII nml as tested, sensation nml, No motor deficits Skin Exam: normal color SpO2 Interpretation: ABG ordered, O2 applied SpO2: 92 O2 Delivery: Nasal Cannula Ordered Tests: Active Orders 24 hr Category Date Time Status EKG-ER Only STAT Care 03/21/23 02:52 Completed IV Insertion STAT Care 03/21/23 02:52 Completed NPO (ED) STAT Care 03/21/23 02:52 Completed Oxygen-ED Only Nasal Cannula 6 lpm Care 03/21/23 02:53 Completed CHEST 1 VIEW (PORTABLE) Stat Exams 03/21/23 02:52 Completed ARTERIAL BLOOD GASES Stat Lab 03/21/23 03:23 Completed BLOOD CULTURE Stat Lab 03/21/23 03:30 Received CBC W DIFF Stat Lab 03/21/23 03:31 Completed CMP Stat Lab 03/21/23 03:31 Completed Lactic Acid Stat Lab 03/21/23 03:23 Completed MAGNESIUM Stat Lab 03/21/23 03:31 Completed NT PRO BNPII Stat Lab 03/21/23 03:31 Completed PROCALCITONIN Stat Lab 03/21/23 03:31 Completed TROPONIN Q3H Lab 03/21/23 03:31 Completed TROPONIN Q3H Lab 03/21/23 09:00 Ordered Respiratory Therapy Assessment DAILY RT 03/21/23 03:01 Completed Medication Summary Discontinued Medications Generic Name Dose Route Start Last Admin Trade Name Mayte PRN Reason Stop Dose Admin Albuterol/Ipratropium 3 ml 03/21/23 02:55 03/21/23 03:03 Ipratropium/Albuterol Sulfate 3 Ml Ampul.Neb IH 03/21/23 02:56 3 ml STAT ONE Administration Albuterol/Ipratropium Confirm 03/21/23 03:00 Ipratropium/Albuterol Sulfate 3 Ml Ampul.Neb Administered 03/21/23 03:01 Dose 3 ml IH .STK-MED ONE Fentanyl Citrate 25 mcg 03/21/23 02:52 03/21/23 03:19 Fentanyl Citrate 100 Mcg/2 Ml* Vial IV 03/21/23 02:53 Not Given STAT ONE Sodium Chloride 250 mls @ 250 mls/hr 03/21/23 03:00 03/21/23 05:00 Sodium Chloride 0.9% 250 Ml IV 03/21/23 03:59 250 mls/hr .Q1H AGUSTINA Infusion Azithromycin 500 mg in 250 mls @ 250 mls/hr 03/21/23 03:48 03/21/23 05:16 Zithromax 500 Mg/ 250 Ml Nacl Premix IV 03/21/23 04:47 Infused STAT STA Infusion Aztreonam 2 gm/ Sodium 100 mls @ 200 mls/hr 03/21/23 03:49 03/21/23 05:20 Chloride IV 03/21/23 04:18 200 mls/hr STAT ONE Administration Azithromycin Confirm 03/21/23 03:51 Zithromax 500 Mg/ 250 Ml Nacl Premix Administered 03/21/23 03:52 Dose 500 mg in 250 mls @ ud IV .STK-MED ONE Sodium Chloride Confirm 03/21/23 03:21 Sodium Chloride 0.9% 250 Ml Administered 03/21/23 03:22 Dose 250 mls @ ud IV .STK-MED ONE Ondansetron HCl 4 mg 03/21/23 02:52 03/21/23 03:24 Ondansetron Hcl 4 Mg/2 Ml Vial IV 03/21/23 02:53 4 mg STAT ONE Administration Ondansetron HCl Confirm 03/21/23 03:20 Ondansetron Hcl 4 Mg/2 Ml Vial Administered 03/21/23 03:21 Dose 4 mg .ROUTE .STK-MED ONE Lab/Rad Data: Laboratory Result Diagrams 03/21/23 03:31 03/21/23 03:31 Laboratory Results 03/21/23 03/21/23 03/21/23 Range/Units 03:32 03:31 03:31 WBC (4.0-10.5) x10^3/uL RBC (4.1-5.6) x10^6/uL Hgb (12.5-18.0) g/dL Hct (42-50) % MCV (78-100) fL MCH (26-32) pg MCHC (32-36) g/dL RDW (11.5-14.0) % Plt Count (150-450) x10^3/uL MPV (7.5-11.0) fL Gran % (36.0-66.0) % Immature Gran % (Auto) (0.00-0.4) % Nucleat RBC Rel Count (0.00-0.1) % Eos # (Auto) (0-0.5) x10^3/uL Immature Gran # (Auto) (0.00-0.03) x10^3u/L Absolute Lymphs (auto) (1.0-4.6) x10^3/uL Absolute Monos (auto) (0.0-1.3) x10^3/uL Absolute Nucleated RBC (0.00-0.01) x10^3u/L Lymphocytes % (24.0-44.0) % Monocytes % (0.0-12.0) % Eosinophils % (0.00-5.0) % Basophils % (0.0-0.4) % Absolute Granulocytes (1.4-6.9) x10^3/uL Basophils # (0-0.4) x10^3/uL Puncture Site pCO2 (35-45) mmHg pO2 (75-100) mmHg Base Excess (-2.0-2.0) O2 Saturation (94-100) g/dF ABG pH (7.35-7.45) ABG HCO3 (22-28) ABG O2 Sat (Measured) (95-100) % Esteban Test A-a Gradient a/A Ratio Hemoglobin Carboxyhemoglobin (0.0-6.9) % THgb Methemoglobin (1.4-1.5) % Potassium (3.5-5.1) Temperature C POC O2 Flow Rate % Sodium (137-145) mmol/L Chloride (98-107) mmol/L Carbon Dioxide (22-30) mmol/L Anion Gap (5-15) MEQ/L BUN (9-20) mg/dL Creatinine (0.66-1.25) mg/dL Estimated GFR ML/MIN Glucose (74-106) mg/dL Lactic Acid (0.4-2.0) Calcium (8.4-10.2) mg/dL Magnesium (1.6-2.3) mg/dL Total Bilirubin (0.2-1.3) mg/dL AST (17-59) U/L ALT (0-50) U/L Alkaline Phosphatase (38-126) U/L Ammonia 30 (9-30) umol/L Troponin I 2.590 H* (0.000-0.034) ng/mL NT-Pro-B Natriuret Pep (<300) pg/mL Serum Total Protein (6.3-8.2) g/dL Albumin (3.5-5.0) g/dL Procalcitonin 1.280 H (0.030-0.080) ng/mL Slides for Path Review 03/21/23 03/21/23 03/21/23 Range/Units 03:31 03:31 03:31 WBC (4.0-10.5) x10^3/uL RBC (4.1-5.6) x10^6/uL Hgb (12.5-18.0) g/dL Hct (42-50) % MCV (78-100) fL MCH (26-32) pg MCHC (32-36) g/dL RDW (11.5-14.0) % Plt Count (150-450) x10^3/uL MPV (7.5-11.0) fL Gran % (36.0-66.0) % Immature Gran % (Auto) (0.00-0.4) % Nucleat RBC Rel Count (0.00-0.1) % Eos # (Auto) (0-0.5) x10^3/uL Immature Gran # (Auto) (0.00-0.03) x10^3u/L Absolute Lymphs (auto) (1.0-4.6) x10^3/uL Absolute Monos (auto) (0.0-1.3) x10^3/uL Absolute Nucleated RBC (0.00-0.01) x10^3u/L Lymphocytes % (24.0-44.0) % Monocytes % (0.0-12.0) % Eosinophils % (0.00-5.0) % Basophils % (0.0-0.4) % Absolute Granulocytes (1.4-6.9) x10^3/uL Basophils # (0-0.4) x10^3/uL Puncture Site pCO2 (35-45) mmHg pO2 (75-100) mmHg Base Excess (-2.0-2.0) O2 Saturation (94-100) g/dF ABG pH (7.35-7.45) ABG HCO3 (22-28) ABG O2 Sat (Measured) (95-100) % Esteban Test A-a Gradient a/A Ratio Hemoglobin Carboxyhemoglobin (0.0-6.9) % THgb Methemoglobin (1.4-1.5) % Potassium 5.3 H (3.5-5.1) Temperature C POC O2 Flow Rate % Sodium 134 L (137-145) mmol/L Chloride 93 L (98-107) mmol/L Carbon Dioxide 29 (22-30) mmol/L Anion Gap 16.3 H (5-15) MEQ/L BUN 49 H (9-20) mg/dL Creatinine 6.63 H (0.66-1.25) mg/dL Estimated GFR 8.9 ML/MIN Glucose 71 L (74-106) mg/dL Lactic Acid (0.4-2.0) Calcium 8.4 (8.4-10.2) mg/dL Magnesium 1.8 (1.6-2.3) mg/dL Total Bilirubin 0.70 (0.2-1.3) mg/dL AST 32 (17-59) U/L ALT 15 (0-50) U/L Alkaline Phosphatase 100 (38-126) U/L Ammonia (9-30) umol/L Troponin I (0.000-0.034) ng/mL NT-Pro-B Natriuret Pep > 22234 (<300) pg/mL Serum Total Protein 7.0 (6.3-8.2) g/dL Albumin 3.2 L (3.5-5.0) g/dL Procalcitonin (0.030-0.080) ng/mL Slides for Path Review 03/21/23 03/21/23 Range/Units 03:31 03:23 WBC 5.7 (4.0-10.5) x10^3/uL RBC 3.62 L (4.1-5.6) x10^6/uL Hgb 9.6 L (12.5-18.0) g/dL Hct 33.2 L (42-50) % MCV 91.7 (78-100) fL MCH 26.5 (26-32) pg MCHC 28.9 L (32-36) g/dL RDW 15.9 H (11.5-14.0) % Plt Count 143 L (150-450) x10^3/uL MPV 10.8 (7.5-11.0) fL Gran % 86.2 H (36.0-66.0) % Immature Gran % (Auto) 0.4 (0.00-0.4) % Nucleat RBC Rel Count 0.0 (0.00-0.1) % Eos # (Auto) 0.02 (0-0.5) x10^3/uL Immature Gran # (Auto) 0.02 (0.00-0.03) x10^3u/L Absolute Lymphs (auto) 0.36 L (1.0-4.6) x10^3/uL Absolute Monos (auto) 0.35 (0.0-1.3) x10^3/uL Absolute Nucleated RBC 0.00 (0.00-0.01) x10^3u/L Lymphocytes % 6.3 L (24.0-44.0) % Monocytes % 6.2 (0.0-12.0) % Eosinophils % 0.4 (0.00-5.0) % Basophils % 0.5 (0.0-0.4) % Absolute Granulocytes 4.91 (1.4-6.9) x10^3/uL Basophils # 0.03 (0-0.4) x10^3/uL Puncture Site LEFT RADIAL pCO2 56 H (35-45) mmHg pO2 73 L (75-100) mmHg Base Excess 0.5 (-2.0-2.0) O2 Saturation 89.6 L (94-100) g/dF ABG pH 7.30 L (7.35-7.45) ABG HCO3 27.6 (22-28) ABG O2 Sat (Measured) 94.7 L (95-100) % Esteban Test YES A-a Gradient 570 a/A Ratio 0.11 Hemoglobin 9.9 Carboxyhemoglobin 4.9 (0.0-6.9) % THgb Methemoglobin 0.5 L (1.4-1.5) % Potassium 5.7 H (3.5-5.1) Temperature 37.0 C POC O2 Flow Rate 100 % Sodium (137-145) mmol/L Chloride (98-107) mmol/L Carbon Dioxide (22-30) mmol/L Anion Gap (5-15) MEQ/L BUN (9-20) mg/dL Creatinine (0.66-1.25) mg/dL Estimated GFR ML/MIN Glucose (74-106) mg/dL Lactic Acid 1.8 (0.4-2.0) Calcium (8.4-10.2) mg/dL Magnesium (1.6-2.3) mg/dL Total Bilirubin (0.2-1.3) mg/dL AST (17-59) U/L ALT (0-50) U/L Alkaline Phosphatase (38-126) U/L Ammonia (9-30) umol/L Troponin I (0.000-0.034) ng/mL NT-Pro-B Natriuret Pep (<300) pg/mL Serum Total Protein (6.3-8.2) g/dL Albumin (3.5-5.0) g/dL Procalcitonin (0.030-0.080) ng/mL Slides for Path Review YES - Progress Progress: improved, re-examined Progress Note: 03/21/23 03:46 62-year-old male with multiple medical problems including 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 Patient was seen at [facility] ER yesterday for similar symptoms and was discharged. Patient is hypoxic with saturation in upper 70s/lower 80s on 4 L and increased to 6 L oxygen with saturation in upper 80s. He is also hypotensive with blood pressure in 80s. Denies any chest pain but does have cough with shortness of breath which according to patient is a chronic. Denies any abdominal pain nausea or vomiting. No fever chills or sick contact reported. 03/21/23 04:16 Is given DuoNeb's with some improvement in work of breathing but still decreased air movements bilaterally with rales on the left side. Chest x-ray showed left-sided consolidation with effusion. He is given a dose of Zithromax and aztreonam. He is also given small bolus of fluid as his pressure was low and improved to 110 systolic. Patient was placed on nonrebreather briefly and switch back to 6 L with sats around 93%. ABG showed pH of 7.3 with pCO2 of 56 and pO2 70s. Normal white count, chemistries consistent with ESRD with creatinine of 6.6 troponin of 2.5 but patient denies having any chest pain and EKG with no ST elevation. I do not think it is cardiac but more of a respiratory issue. Patient refused to have COVID test done. No dialysis services are available here, patient would be transferred to [facility]. I have discussed the results of workup and plan of transfer with the patient who understand and agrees. 03/21/23 05:[address] Freitas, reviewed history, workup and patient is excepted for transfer. Discussed with : Other Counseled pt/family regarding: lab results, diagnosis, rad results Medical Desision Making - Independent Historian Additional History obtained from: [facility]/EMT - Discussion of managment Care discussed with:: on-call "doc" (Dr. Freitas [facility] ER) Reviewed:: Test results Agreed on:: Treatment plan Will see patient: in ED - Diagnostic Testing Diagnostic test were ordered, analyzed, and reviewed by me: Yes Radiological Interpretation: Reviewed by me, Teleradiologist Report - Risk of complications The pt has a high risk of morbidity or mortality based on: Decision regarding hospitilization or escalation of hosp level of care - Departure Departure Disposition: Transfer Clinical Impression: Pneumonia, Elevated troponin, ESRD (end stage renal disease) on dialysis Hypoxic respiratory failure Qualifiers: Chronicity: acute on chronic Qualified Code(s): J96.21 - Acute and chronic respiratory failure with hypoxia Condition: Fair Critical Care Time: Yes Critical Care Time(excluding separately billable procedures): Critical 30-74 mins Referrals: CONNIE DYSON MD [Primary Care Provider] - Follow up/PCP as directed
[2023-03-21] MEDS ORDERED: Zithromax 500 MG/ 250 ML NaCl Premix 500 MG/250 ML IVPB IV STA (03:48)
[2023-03-21] MEDS ORDERED: AZACTAM 1 GM*** 2 GM in Sodium Chloride 0.9% 100 ML IV ONE (03:49)
[2023-03-21 03:51] LABS: Absolute Neutrophil Ct (ANC) 4.91 x10^3/uL (1.4-6.9); BASOPHIL % 0.5 % (0.0-0.4); Basophil (Absolute #) 0.03 x10^3/uL (0-0.4); Eosinophil % 0.4 % (0.00-5.0); Eosinophil (Absolute #) 0.02 x10^3/uL (0-0.5); Hematocrit 33.2 % (42-50); Hemoglobin 9.6 g/dL (12.5-18.0); IMMATURE GRAN # 0.02 x10^3u/L (0.00-0.03); IMMATURE GRAN % 0.4 % (0.00-0.4); Lymphocyte (Absolute #) 0.36 x10^3/uL (1.0-4.6); Lymphocytes % 6.3 % (24.0-44.0); Mean Cell Volume 91.7 fL (78-100); Mean Corpuscular Hemoglobin 26.5 pg (26-32); Mean Corpuscular Hgb Concent. 28.9 g/dL (32-36); Mean Platelet Volume 10.8 fL (7.5-11.0); Monocyte (Absolute #) 0.35 x10^3/uL (0.0-1.3); Monocytes % 6.2 % (0.0-12.0); Neutrophil % 86.2 % (36.0-66.0); Platelet Count 143 x10^3/uL (150-450); Red Blood Count 3.62 x10^6/uL (4.1-5.6); Red Cell Distribution Width 15.9 % (11.5-14.0); White Blood Count 5.7 x10^3/uL (4.0-10.5)
[2023-03-21] MEDS ORDERED: Zithromax 500 MG/ 250 ML NaCl Premix 500 MG/250 ML IVPB IV ONE (03:51)
--- NOTE | 2023-03-21 03:59 | XRAY ---
CLINICAL HISTORY:cough COMPARISON:X ray chest done on 05/19/2016 TECHNIQUE:X-ray of chest was acquired. FINDINGS: Pacemaker is seen . Consolidation is seen in the left mid and lower zone with basal pleural effusion. Heterogeneous haziness noted in right lower zone. No acute osseous abnormality. IMPRESSION: 1. Consolidation in the left mid and lower zone with basal pleural effusion. 2. Heterogenous haziness in right lower zone- - stable. As compared to prior scan done on 2016, the consolidation in the left lung is new finding. Electronically Signed by: Dr. Lon Luciano MD. (03/21/2023 03:55:08 EST)
[2023-03-21 04:06] LABS: ALBUMIN 3.2 g/dL (3.5-5.0); ANION GAP 16.3 MEQ/L (5-15); BILIRUBIN,TOTAL 0.7 mg/dL (0.2-1.3); Calcium 8.4 mg/dL (8.4-10.2); Creatinine 1 6.63 mg/dL (0.66-1.25); EST GLOMERULAR FILTRATION RATE 8.9 ML/MIN; Potassium 5.3 mmol/L (3.5-5.1)
[2023-03-21 04:28] LABS: Slide Review 1 YES
[2023-03-21 05:27] VITALS: BP 80/43; PULSE 61; RESP 15
[2023-03-21 06:16] VITALS: O2SAT 92
== END 2023-03-21 05:55 | disposition short-term general hospital (02) ==
LOC: ED 02:40
DX: J18.9 Pneumonia, unspecified organism (principal); R77.8 Other specified abnormalities of plasma proteins; J96.21 Acute and chronic respiratory failure with hypoxia; I13.2 Hypertensive heart and chronic kidney disease with heart failure and with stage 5 chronic kidney disease, or end stage renal disease; E11.22 Type 2 diabetes mellitus with diabetic chronic kidney disease; N18.6 End stage renal disease; I50.9 Heart failure, unspecified; Z99.2 Dependence on renal dialysis; R52 Pain, unspecified; I95.9 Hypotension, unspecified; Z79.4 Long term (current) use of insulin; Z79.01 Long term (current) use of anticoagulants; Z79.02 Long term (current) use of antithrombotics/antiplatelets; Z79.899 Other long term (current) drug therapy
CPT/HCPCS: 36000; 36415; 36600; 71045; 80053; 82140; 82375; 82803; 83605; 83735; 83880; 84145; 84484; 85025; 87040; 93005; 94640; 96374; 99285; 99291; J0456; J2405; A9270-GY